=== PATIENT | male | born 1940 | race Caucasian/White ===

== ENCOUNTER 2023-04-17 06:21 | Inpatient (IN) ==
[2023-04-17] MEDS ORDERED: CEFEPIME 2,000 MG/20 ML VIAL IV STA (06:54)
[2023-04-17] MEDS ORDERED: ACETAMINOPHEN 1,000 MG/100 ML VIAL IV STA (06:54)
[2023-04-17] MEDS ORDERED: SODIUM CHLORIDE 0.9% 1000ML 1,000 ML IV ONE (06:54)
--- NOTE | 2023-04-17 06:58 | Emergency Department Note ---
Impression & Plan Illness, Thrombocytopenia, Fever of unknown origin, Generalized weakness ED Provider Note Name: FAYE VAZQUEZ Age: 83 Sex: M Arrives Via: Ambulance Informant: Patient (poor historian), ED Provider: Cedrick Umaña MD Chief Complaint: Weakness Impression: As per impression above Medical Decision Makin-year-old gentleman from out of town who has a history of hypotension, vertigo, dementia arrives for evaluation of worsening weakness and confusion over the last 12 to 24 hours. He has been complaining of neck and upper back pain since moving a refrigerator a few days ago. On examination he does not appear to have meningitis he is moving his head around without significant discomfort has no nuchal rigidity. He does not have a fever either though he does feel quite warm. He is mildly confused and dehydrated appearing. He was given IV fluids with vast improvement. His initial blood pressure lactic acid are unremarkable as well. I am testing is positive for IgG but not IgM thus would suspect chronic infections as opposed to acute Lyme as the cause of his symptoms today. notes that he has been losing bladder control this UA obtained which is unremarkable as well. White blood cell count his procalcitonin's lactate are all unremarkable. There is no clear etiology of the fever. He does appear to have been significantly improved though with IV fluids and antibiotics. Given all of this clearly will need to come and hospitalist was consulted for further management. At this point given he has no true nuchal rigidity no fever no white count would hold off on LP at this time and defer neuroimaging to hospital service for further management. Given his history and the confusion blood cultures had been obtained he was given empiric cefepime for infectious etiology. Patient has a mild thrombocytopenia. He and state that he has had this for a long time. Triage/Nursing Notes reviewed by Me Differentials:Viral syndrome, otitis, pharyngitis, pneumonia, influenza, meningitis, urinary tract infection, sepsis, bacteremia, as well as other pathologies. Vital Signs: reviewed and remarkable for no significant abnormalities Interventions: Normal saline bolus IV, cefepime IV Labs:Reviewed and remarkable for no significant abnormalities Imaging:Reviewed chest x-ray as per my interpretation no infiltrate nor effusion appreciated. EKG:As per my interpretation. Indication weakness. Normal sinus rhythm at 95 bpm no ectopy no ischemia. Cardiac/Tele Monitoring: Cardiac Monitoring: An Order was placed for continuous cardiac monitoring. The monitor shows a rate of 90 with a normal sinus rhythm. Consults:Dr Cain Romero Hospitalist Plan: Disposition:Hospitalization Condition: Fair History of Present Illness:83-year-old male arrives for evaluation illness. Patient had been moving a refrigerator several days ago and started noticing he had wrenched his neck and upper back. Otherwise no issues until yesterday. He developed fevers, chills, weakness, fatigue, loss of bladder control, confusion, cough and generalized malaise. Patient without appetite over the last 12 to 24 hours. He has developed a moderate cough. No productive cough. Denies any falls or syncope. Denies any headache, sore throat, chest pain, difficulty breathing, back pain, abdominal pain, urinary burning, diarrhea, leg swelling, rashes. Patient without history of this previously. No known sick contacts Past History:Hypotension, Vertigo, Dementia (mild) Home Medications:midodrine, meclizine, aricept Allergies:No known drug allergy Vitals:Blood Pressure: 131/91, Pulse 93, RR 19, T 37.1C, O2 98% on 4L NC Physical Exam: GENERAL: Patient is unwell appearing and in mild distress. Patient is significantly warm to touch and feels febrile. He has some mild rigors. He is moderately somnolent EYES: No scleral icterus, unremarkable pupils. ENT: Mucous membranes dry, no nasal congestion. NECK: No masses appreciated, nomeningismus, trachea is midline. RESPIRATORY: Moderately tachypneic with crackles at bilateral bases CARDIOVASCULAR: Regular rate and rhythm.No murmurs, rubs, gallops appreciated. GASTROINTESTINAL: Abdomen soft, non-tender, no peritonitis. EXTREMITIES: Normal motion all extremities, no cyanosis, no edema. NEUROLOGIC: Patient is somnolent but is alert enough to answer questions and is oriented. No focal neurologic deficit appreciated SKIN: No rash, no jaundice, no diaphoresis. PSYCH: Appropriate GCS: 15 ED Course: Times/Reassessments: Patient does appear much better after some IV fluids. He is awake he is still somewhat tremulous but he is answering questions. Cedrick Umaña MD Past Med/Surg History Medical History (Updated 04/17/23 @ 13:24 by Cedrick Umaña MD) Dementia Vertigo Surgical History (Updated 04/17/23 @ 08:39 by Kia Barlow DO) S/P rotator cuff repair right Social History (Updated 04/17/23 @ 08:40 by Kia Barlow DO) Smoking Status: Never smoker Hx Alcohol Use: No Hx Substance Use: No Current Living Situation: Spouse Feels Safe at Home: Yes Assistive Devices: None Allergies Allergies Allergy/AdvReac Type Severity Reaction Status Date / Time No Known Allergies Allergy Unverified 04/17/23 08:31 Home Meds Home Medications Medication Instructions Recorded Confirmed Zn-pyg yibi-[id number]-lyc palmet 1 cap PO DAILY 04/17/23 04/17/23 capsule donepezil 5 mg tablet 5 mg PO QAM 04/17/23 04/17/23 latanoprost 0.005 % eye drops 1 drp OPB HS 04/17/23 04/17/23 meclizine 12.5 mg tablet 12.5 mg PO DAILY 04/17/23 04/17/23 midodrine 5 mg tablet 5 mg PO BID@0700,1300 04/17/23 04/17/23 Results & Data (ED) Vital Signs Vital Signs - 24 hr 04/17/23 06:25 04/17/23 06:25 04/17/23 06:32 Temperature 37.1 C Temperature Source Oral Pulse Rate 97 H 93 H Pulse Rate from SpO2 Sensor Respiratory Rate 19 Respiratory Effort / Characteristics Non-Labored Respiratory Depth Normal Blood Pressure 131/91 Blood Pressure Mean 104 Pulse Oximetry 98 Oxygen Delivery Method Nasal Cannula Oxygen Flow Rate 4 Sepsis Recent Fever Within 48 Hours Yes Sepsis New/Unexplained Change in Mental Status No Sepsis Action Taken by Nursing No Action Required 04/17/23 07:00 04/17/23 07:30 04/17/23 08:30 Temperature Temperature Source Pulse Rate 90 90 97 H Pulse Rate from SpO2 Sensor 91 H 88 97 H Respiratory Rate 19 16 28 H Respiratory Effort / Characteristics Respiratory Depth Blood Pressure 119/76 137/73 121/84 Blood Pressure Mean 90 94 96 Pulse Oximetry 95 98 90 Oxygen Delivery Method Room Air Oxygen Flow Rate Sepsis Recent Fever Within 48 Hours Sepsis New/Unexplained Change in Mental Status Sepsis Action Taken by Nursing 04/17/23 09:00 Temperature Temperature Source Pulse Rate 89 Pulse Rate from SpO2 Sensor 82 Respiratory Rate 23 Respiratory Effort / Characteristics Respiratory Depth Blood Pressure 126/67 Blood Pressure Mean 86 Pulse Oximetry 95 Oxygen Delivery Method Oxygen Flow Rate Sepsis Recent Fever Within 48 Hours Sepsis New/Unexplained Change in Mental Status Sepsis Action Taken by Nursing Laboratory Data 04/17/23 06:29 04/17/23 06:29 Lab Results 04/17/23 04/17/23 04/17/23 Range/Units 06:29 06:29 06:29 WBC 5.37 (4.8-10.8) K/ul RBC 4.11 L (4.70-6.10) M/uL Hgb 13.0 L (14.0-18.0) g/dl Hct 38.2 L (42.0-52.0) % MCV 92.9 (80.0-100.0) fL MCH 31.6 (25.0-34.0) pg MCHC 34.0 (32.0-36.0) g/dL RDW Std Deviation 40.9 (36.4-46.3) fL RDW Coeff of Nasrin 12.1 (11.5-14.5) % Plt Count 99 L (130-400) K/uL MPV 10.5 (9.4-12.4) fL Immature Gran % (Auto) 0.2 % Neut % (Auto) 81.7 % Lymph % (Auto) 7.1 % [place] % (Auto) 8.4 % Eos % (Auto) 2.2 % Baso % (Auto) 0.4 % Neut # (Auto) 4.39 (1.40-6.50) K/uL Lymph # (Auto) 0.38 L (1.2-3.4) K/uL [place] # (Auto) 0.45 (0.11-0.59) K/uL Eos # (Auto) 0.12 (0-0.50) K/uL Baso # (Auto) 0.02 (0-0.2) K/uL Immature Gran # (Auto) 0.01 (0.01-0.20) K/uL Platelet Estimate Decreased L (Normal) Sodium 138 (136-145) mmol/L Potassium 3.9 (3.5-5.1) mmol/L Chloride 110 H (98-107) mmol/L Carbon Dioxide 23 (21-32) mmol/L Anion Gap 5 (3-11) BUN 17 (6-23) mg/dl Creatinine 1.17 (0.6-1.4) mg/dl Est Cr Clr Drug Dosing 59.0 ml/min Est GFR ( Amer) 65.5 ml/min Est GFR (Non-Af Amer) 56.5 ml/min BUN/Creatinine Ratio 14.5 (10-20) Glucose 128 H (70-99(Fasting)) mg/dl Lactate (0.4-2.0) mmol/L Calcium 8.3 L (8.6-10.3) mg/dl Total Bilirubin 0.9 (0.2-1.0) mg/dl AST 17 (13-39) U/L ALT 11 (7-52) U/L Alkaline Phosphatase 91 (34-104) U/L Total Creatine Kinase 74 (30-223) U/L C-Reactive Protein 2.94 H (0-0.5) mg/dl Total Protein 6.1 (6.0-8.3) gm/dl Albumin 3.5 (3.4-5.0) gm/dl Globulin 2.6 (2.5-4.0) gm/dl Albumin/Globulin Ratio 1.3 (0.9-2) Procalcitonin (0-0.5) ng/ml TSH (0.300-4.500) uIu/ml Urine Color Urine Appearance (Clear) Urine pH (4.5-7.5) Ur Specific [place] (1.000-1.030) Urine Protein (Negative) Urine Glucose (UA) (Negative) Urine Ketones (Negative) Urine Blood (Negative) Urine Nitrite (Negative) Urine Bilirubin (Negative) Urine Urobilinogen (Negative) Ur Leukocyte Esterase (Negative) Nasal Screen MRSA (PCR) (Negative) Adenovirus (PCR) (NotDetected) Anaplasma Smear See Comment Babesia Smear See Comment B. pertussis DNA (PCR) (NotDetected) B.parapertussis DNA PCR (NotDetected) Lyme Disease IgG Ab (Negative) Lyme Disease IgM Ab (Negative) C. pneumoniae DNA (PCR) (NotDetected) Coronavirus OC43 (PCR) (NotDetected) Coronavirus HKU1 (PCR) (NotDetected) Coronavirus 229E (PCR) (NotDetected) SARS-CoV-2 (PCR) (NotDetected) Coronavirus NL63 (PCR) (NotDetected) Human Metapneumovir PCR (NotDetected) Influenza Type A (PCR) (NotDetected) Influenza Type B (PCR) (NotDetected) M. pneumoniae (PCR) (NotDetected) Parainfluenza 1 (PCR) (NotDetected) Parainfluenza 2 (PCR) (NotDetected) Parainfluenza 3 (PCR) (NotDetected) Parainfluenza 4 (PCR) (NotDetected) RSV (PCR) (NotDetected) Entero/Rhino (PCR) (NotDetected) 04/17/23 04/17/23 04/17/23 Range/Units 06:29 06:32 07:10 WBC (4.8-10.8) K/ul RBC (4.70-6.10) M/uL Hgb (14.0-18.0) g/dl Hct (42.0-52.0) % MCV (80.0-100.0) fL MCH (25.0-34.0) pg MCHC (32.0-36.0) g/dL RDW Std Deviation (36.4-46.3) fL RDW Coeff of Nasrin (11.5-14.5) % Plt Count (130-400) K/uL MPV (9.4-12.4) fL Immature Gran % (Auto) % Neut % (Auto) % Lymph % (Auto) % [place] % (Auto) % Eos % (Auto) % Baso % (Auto) % Neut # (Auto) (1.40-6.50) K/uL Lymph # (Auto) (1.2-3.4) K/uL [place] # (Auto) (0.11-0.59) K/uL Eos # (Auto) (0-0.50) K/uL Baso # (Auto) (0-0.2) K/uL Immature Gran # (Auto) (0.01-0.20) K/uL Platelet Estimate (Normal) Sodium (136-145) mmol/L Potassium (3.5-5.1) mmol/L Chloride (98-107) mmol/L Carbon Dioxide (21-32) mmol/L Anion Gap (3-11) BUN (6-23) mg/dl Creatinine (0.6-1.4) mg/dl Est Cr Clr Drug Dosing ml/min Est GFR ( Amer) ml/min Est GFR (Non-Af Amer) ml/min BUN/Creatinine Ratio (10-20) Glucose (70-99(Fasting)) mg/dl Lactate 1.3 (0.4-2.0) mmol/L Calcium (8.6-10.3) mg/dl Total Bilirubin (0.2-1.0) mg/dl AST (13-39) U/L ALT (7-52) U/L Alkaline Phosphatase (34-104) U/L Total Creatine Kinase (30-223) U/L C-Reactive Protein (0-0.5) mg/dl Total Protein (6.0-8.3) gm/dl Albumin (3.4-5.0) gm/dl Globulin (2.5-4.0) gm/dl Albumin/Globulin Ratio (0.9-2) Procalcitonin 0.16 (0-0.5) ng/ml TSH 0.675 (0.300-4.500) uIu/ml Urine Color Urine Appearance (Clear) Urine pH (4.5-7.5) Ur Specific [place] (1.000-1.030) Urine Protein (Negative) Urine Glucose (UA) (Negative) Urine Ketones (Negative) Urine Blood (Negative) Urine Nitrite (Negative) Urine Bilirubin (Negative) Urine Urobilinogen (Negative) Ur Leukocyte Esterase (Negative) Nasal Screen MRSA (PCR) (Negative) Adenovirus (PCR) (NotDetected) Anaplasma Smear Babesia Smear B. pertussis DNA (PCR) (NotDetected) B.parapertussis DNA PCR (NotDetected) Lyme Disease IgG Ab Positive A (Negative) Lyme Disease IgM Ab Negative (Negative) C. pneumoniae DNA (PCR) (NotDetected) Coronavirus OC43 (PCR) (NotDetected) Coronavirus HKU1 (PCR) (NotDetected) Coronavirus 229E (PCR) (NotDetected) SARS-CoV-2 (PCR) (NotDetected) Coronavirus NL63 (PCR) (NotDetected) Human Metapneumovir PCR (NotDetected) Influenza Type A (PCR) (NotDetected) Influenza Type B (PCR) (NotDetected) M. pneumoniae (PCR) (NotDetected) Parainfluenza 1 (PCR) (NotDetected) Parainfluenza 2 (PCR) (NotDetected) Parainfluenza 3 (PCR) (NotDetected) Parainfluenza 4 (PCR) (NotDetected) RSV (PCR) (NotDetected) Entero/Rhino (PCR) (NotDetected) 04/17/23 04/17/23 04/17/23 Range/Units 07:25 07:26 07:34 WBC (4.8-10.8) K/ul RBC (4.70-6.10) M/uL Hgb (14.0-18.0) g/dl Hct (42.0-52.0) % MCV (80.0-100.0) fL MCH (25.0-34.0) pg MCHC (32.0-36.0) g/dL RDW Std Deviation (36.4-46.3) fL RDW Coeff of Nasrin (11.5-14.5) % Plt Count (130-400) K/uL MPV (9.4-12.4) fL Immature Gran % (Auto) % Neut % (Auto) % Lymph % (Auto) % [place] % (Auto) % Eos % (Auto) % Baso % (Auto) % Neut # (Auto) (1.40-6.50) K/uL Lymph # (Auto) (1.2-3.4) K/uL [place] # (Auto) (0.11-0.59) K/uL Eos # (Auto) (0-0.50) K/uL Baso # (Auto) (0-0.2) K/uL Immature Gran # (Auto) (0.01-0.20) K/uL Platelet Estimate (Normal) Sodium (136-145) mmol/L Potassium (3.5-5.1) mmol/L Chloride (98-107) mmol/L Carbon Dioxide (21-32) mmol/L Anion Gap (3-11) BUN (6-23) mg/dl Creatinine (0.6-1.4) mg/dl Est Cr Clr Drug Dosing ml/min Est GFR ( Amer) ml/min Est GFR (Non-Af Amer) ml/min BUN/Creatinine Ratio (10-20) Glucose (70-99(Fasting)) mg/dl Lactate (0.4-2.0) mmol/L Calcium (8.6-10.3) mg/dl Total Bilirubin (0.2-1.0) mg/dl AST (13-39) U/L ALT (7-52) U/L Alkaline Phosphatase (34-104) U/L Total Creatine Kinase (30-223) U/L C-Reactive Protein (0-0.5) mg/dl Total Protein (6.0-8.3) gm/dl Albumin (3.4-5.0) gm/dl Globulin (2.5-4.0) gm/dl Albumin/Globulin Ratio (0.9-2) Procalcitonin (0-0.5) ng/ml TSH (0.300-4.500) uIu/ml Urine Color Yellow Urine Appearance Clear (Clear) Urine pH 7.0 (4.5-7.5) Ur Specific [place] 1.022 (1.000-1.030) Urine Protein Negative (Negative) Urine Glucose (UA) Negative (Negative) Urine Ketones Trace H (Negative) Urine Blood Negative (Negative) Urine Nitrite Negative (Negative) Urine Bilirubin Negative (Negative) Urine Urobilinogen Negative (Negative) Ur Leukocyte Esterase Negative (Negative) Nasal Screen MRSA (PCR) Negative (Negative) Adenovirus (PCR) Not Detected (NotDetected) Anaplasma Smear Babesia Smear B. pertussis DNA (PCR) Not Detected (NotDetected) B.parapertussis DNA PCR Not Detected (NotDetected) Lyme Disease IgG Ab (Negative) Lyme Disease IgM Ab (Negative) C. pneumoniae DNA (PCR) Not Detected (NotDetected) Coronavirus OC43 (PCR) Not Detected (NotDetected) Coronavirus HKU1 (PCR) Not Detected (NotDetected) Coronavirus 229E (PCR) Not Detected (NotDetected) SARS-CoV-2 (PCR) Not Detected (NotDetected) Coronavirus NL63 (PCR) Not Detected (NotDetected) Human Metapneumovir PCR Not Detected (NotDetected) Influenza Type A (PCR) Not Detected (NotDetected) Influenza Type B (PCR) Not Detected (NotDetected) M. pneumoniae (PCR) Not Detected (NotDetected) Parainfluenza 1 (PCR) Not Detected (NotDetected) Parainfluenza 2 (PCR) Not Detected (NotDetected) Parainfluenza 3 (PCR) Not Detected (NotDetected) Parainfluenza 4 (PCR) Not Detected (NotDetected) RSV (PCR) Not Detected (NotDetected) Entero/Rhino (PCR) Not Detected (NotDetected) Administered Medications Donepezil HCl (Donepezil Hcl 5 Mg Tab) 5 mg PO QAM MARIA ESTHER Stop: 05/17/23 12:10 Last Admin: 04/17/23 12:36 Dose: 5 mg Documented By: MTDeja Sodium Chloride (Nss 1000ml) 1,000 mls @ 125 mls/hr IV .Q8H MARIA ESTHER Stop: 04/18/23 04:10 Last Admin: 04/17/23 12:36 Dose: 125 mls/hr Documented By: MTDeja Discontinued Medications Sodium Chloride (Nss 1000ml) 1,000 mls @ 999 mls/hr IV .Q1H1M ONE Stop: 04/17/23 07:54 Last Infusion: 04/17/23 09:01 Dose: 0 mls/hr Documented By: LULA(2) Admin: 04/17/23 07:27 Dose: 999 mls/hr Documented By: MTDeja(2) Acetaminophen (Ofirmev) 1,000 mg in 100 mls @ 400 mls/hr IV NOW STA Stop: 04/17/23 07:08 Last Infusion: 04/17/23 09:00 Dose: 0 mls/hr Documented By: MTDeja(2) Admin: 04/17/23 07:27 Dose: 400 mls/hr Documented By: LULA(2) Cefepime HCl (Maxipime) 2,000 mg in 20 mls @ 5 mls/min IV NOW STA; Protocol Stop: 04/17/23 06:57 Last Admin: 04/17/23 07:27 Dose: 5 mls/min Documented By: LULA(2) Imaging Data Radiologist's Impression: Chest X-Ray 04/17/23 06:29 XR chest 1V portable CLINICAL HISTORY: Fever TECHNIQUE: Single frontal radiograph of the chest was obtained. Comparison: None available at the time of this dictation. FINDINGS: No lines and tubes are seen. The cardiomediastinal silhouette is normal. Reticular interstitial opacities are seen. No evidence of pleural effusion or pneumothorax. IMPRESSION: Interstitial thickening may represent chronic interstitial disease or vascular congestion. No evidence of pneumonia. ACT 112: Negative or not required by law. Electronically signed by: Wilton Huitron M.D. 04/17/2023 10:45 AM Discharge Plan Visit Data Chief Complaint: Fever Stated Complaint: BACK INJURY/PAIN, ALTERED, FEVER ED Provider: Cedrick Umaña Discharge Problem: Illness, Thrombocytopenia, Fever of unknown origin, Generalized weakness Patient Disposition: Admitted As Inpatient Discharge Instructions Interventions: ED Discharge Assessment Last Done: 04/17/23 12:25
[2023-04-17 07:12] LABS: Albumin Globulin Ratio 1.3 (0.9-2); Albumin Level 3.5 gm/dl (3.4-5.0); BUN Creatinine Ratio 14.5 (10-20); Bilirubin,Total 0.9 mg/dl (0.2-1.0); Calcium 8.3 mg/dl (8.6-10.3); Est GFR (African American) 65.5 ml/min; Est GFR (Non-African American) 56.5 ml/min; Globulin 2.6 gm/dl (2.5-4.0); Potassium 3.9 mmol/L (3.5-5.1); Total Protein 6.1 gm/dl (6.0-8.3)
[2023-04-17 07:18] LABS: Basophils # (auto) 0.02 K/uL (0-0.2); Basophils % (auto) 0.4 %; Eosinophils # (auto) 0.12 K/uL (0-0.50); Eosinophils % (auto) 2.2 %; Immature Granulocytes # (auto) 0.01 K/uL (0.01-0.20); Immature Granulocytes % (auto) 0.2 %; Lymphocytes # (auto) 0.38 K/uL (1.2-3.4); Lymphocytes % (auto) 7.1 %; Monocytes # (auto) 0.45 K/uL (0.11-0.59); Monocytes % (auto) 8.4 %; Neutrophils # (auto) 4.39 K/uL (1.40-6.50); Neutrophils % (auto) 81.7 %; Platelet Estimate Decreased (Normal)
[2023-04-17 07:19] LABS: Hematocrit (blood only) 38.2 % (42.0-52.0); Mean Corpuscular Hemoglobin 31.6 pg (25.0-34.0); Mean Corpuscular Volume 92.9 fL (80.0-100.0); Mean Platelet Volume 10.5 fL (9.4-12.4); Platelet Count 99 K/uL (130-400); RDW Coefficient of Variation 12.1 % (11.5-14.5); RDW Standard Deviation 40.9 fL (36.4-46.3); Red Blood Count 4.11 M/uL (4.70-6.10); White Blood Count 5.37 K/ul (4.8-10.8)
[2023-04-17 07:54] LABS: Procalcitonin 0.16 ng/ml (0-0.5)
[2023-04-17 08:00] LABS: Lyme Ab IgG w/WB Rflx Positive (Negative); Lyme Ab IgM w/WB Rflx Negative (Negative)
[2023-04-17 08:08] LABS: Appearance Urine Clear (Clear); Bilirubin Urine Negative (Negative); Blood Urine Negative (Negative); Color Urine Yellow; Glucose Urine UA Negative (Negative); Ketones Urine Trace (Negative); Leukocyte Esterase Urine Negative (Negative); Nitrite Urine Negative (Negative); Protein Urine Negative (Negative); Specific Gravity Urine 1.022 (1.000-1.030); Urobilinogen Urine Negative (Negative)
--- NOTE | 2023-04-17 08:26 | History & Physical Report ---
Date of Service April 17, 2023 Assessment & Plan (1) Fever: Plan: doesn't meet SIRS criteria but does clinically appear to be an early developing sepsis. Unclear etiology-urine clear, CXR clear on wet read, meningitis considered but thought less likely, Lyme negative and thrombocytopenic but no other LFT abnormalities and no h/o known tick exposure that would suggest rickettsial illness, currently mentating at baseline, no abdominal pain on exam, no other skin findings, no heart murmur, no evidence of GI illness. Blood cultures and final CXR reading pending. Respiratory biofire panel negative. For now, agree with broad spectrum abx coverage with cefepime pending culture results and clinical improvement. Monitor on telemetry. PT/OT for weakness. Cont IVF for another 2 bags until feeling better. (2) Weakness: Plan: plan as above. Cont supportive care. (3) Urinary incontinence: Plan: Uncertain cause, no evidence of infection. Patient has been taking meclizine daily since January and was counseled not to do this because of known anticholinergic side effects such as dry mouth and urinary retention that can de velop. He reports having these issues now with loss of control of bladder just last night when he would change position sitting to standing. He apparently has significant vertigo at baseline. Will cont to watch this closely off the meclizine. Hold saw palmetto supplement. Bladder scans every 6 hours. (4) Thrombocytopenia: Plan: No prior records available to eval baseline. Possibly related to acute infection given infectious symptoms. INR, fibrinogen to ensure no DIC picture. Hold DVT chemoprophylaxis at this time and trend CBC in am. (5) Ambulatory dysfunction: Plan: frequent falls, however, none since January per who is at bedside and assists with the history today. Will also hold midodrine and add back if hypotensive. Check orthostatics qshift (6) Dementia: Plan: chronic, mentating at his baseline. takes donepezil which will be continued (7) Vertigo: Plan: Hold daily meclizine as noted above. SCDs/ambulation Full Code Dispo-to telemetry overnight. Home possibly tomorrow pending clinical improvement, therapy eval and recommendations, and culture results. I spent a total [id number] coordinating, documenting, and providing care for this patient excluding time spent in the performance of separately billed services DO Nick Powell Hospitalist History of Present Illness Chief Complaint: fever Primary Care Provider: EMILY PCP 83 yo M with dementia traveled here this weekend from [place] to visit a friend reports helped friend moving heavy refrigerator reports losing control of urine when changes position, chronically has retention issues, takes saw palmetto supplement which "isn't working" became weaker in the last 24-48 hours with fever since yesterday ate well yesterday in middle of night, he had to go to the bathroom and per he was very confused thought there was a faucet on the wall where he could get a drink of water he was too weak and couldn't get dressed, couldn't stand up or take directions. dry coughing reported about 3-4 days ago "dull thumper of a headache" Neck stiffness and back pain related to moving friends' refrigerator. weakness and more frequent falls at home in recent months per but no fall since January midodrine was started a couple of months ago and he has been taking twice daily persistent dizziness so takes meclizine every day since January Also takes donepezil ambulates independently and he is mentating at his baseline. mosquito bites recently per some back stiffness related to moving the appliance. Denies chest pain, SOB, abdominal pain. On arrival to the ER he was confused and lethargic with HR 97. Temp didn't register as febrile, but he appeared hot and ill with generalized weakness. Given NSS and cefepime and perked up with IVf per ER provider. Meningitis considered, however, patient and feel this is less likely and decline LP at this time. Lyme panel-no acute disease Anaplasma and babesia pending. No lab abnormalities, rashes or known h/o tick that would suggest tick borne illness in the history. CXR without formal reading but doesn't appear to have a chyna pneumonia Blood cultures are pending. Allergies Allergy/AdvReac Type Severity Reaction Status Date / Time No Known Allergies Allergy Unverified 04/17/23 08:31 Home Medications Medication Instructions Recorded Confirmed Type Zn-pyg troy-leljjd-yey palmet 1 cap PO DAILY 04/17/23 04/17/23 History capsule donepezil 5 mg tablet 5 mg PO QAM 04/17/23 04/17/23 History latanoprost 0.005 % eye drops 1 drp OPB HS 04/17/23 04/17/23 History meclizine 12.5 mg tablet 12.5 mg PO DAILY 04/17/23 04/17/23 History midodrine 5 mg tablet 5 mg PO BID@0700,1300 04/17/23 04/17/23 History Past Med/Surg History Medical History (Updated 04/17/23 @ 09:31 by Kia Barlow DO) Dementia Vertigo Surgical History (Updated 04/17/23 @ 08:39 by Kia Barlow DO) S/P rotator cuff repair right Social History (Updated 04/17/23 @ 08:40 by Kia Barlow DO) Smoking Status: Never smoker Hx Alcohol Use: No Hx Substance Use: No Current Living Situation: Spouse Feels Safe at Home: Yes Review of Systems Review of Systems: All systems were reviewed and negative except as indicated on HPI above. Physical Exam Physical Exam: CONSTITUTIONAL: WNWD, vitals as above, generally ill-appearing, NAD EYES: normal conjunctivae, no scleral icterus ENT: external ear and nose normal NECK: trachea midline RESPIRATORY: clear to auscultation bilaterally, no crackles, rales or wheezes, normal respiratory effort CARDIOVASCULAR: regular rate and rhythm, S1 and 2 heard without murmurs, gallops or rubs, no JVD, no peripheral edema CHEST: inspection of chest was normal GASTROINTESTINAL: soft, nontender, ND, no guarding MUSCULOSKELETAL: strength 5/5 throughout, head is normocephalic and atraumatic SKIN: warmer than normal and dry, no rashes NEUROLOGIC: patellar DTRs 2+ bilat. pupils are round and equal bilaterally, no facial palsy, no dysarthria. CN 2-12 grossly intact, no sensory deficit, normal cognition, normal speech, no tremor PSYCHIATRIC: alert cooperative and oriented to person, place but not to time which is his baseline. Euthymic mood, answering questions correctly, no clinical signs of delirium. Results & Data Results & Data Vital Signs (Past 12 Hours) Vital Signs Temp Pulse Resp BP Pulse Ox O2 Del Method O2 Flow Rate 04/17/23 07:30 90 16 137/73 98 Room Air 04/17/23 07:00 90 19 119/76 95 04/17/23 06:32 93 H 04/17/23 06:25 37.1 C 97 H 19 131/91 98 Nasal Cannula 4 Laboratory Results Short CBC 04/17/23 Range/Units 06:29 WBC 5.37 (4.8-10.8) K/ul Hgb 13.0 L (14.0-18.0) g/dl Hct 38.2 L (42.0-52.0) % Plt Count 99 L (130-400) K/uL BMP 04/17/23 06:29 Sodium 138 Potassium 3.9 Chloride 110 H Carbon Dioxide 23 BUN 17 Creatinine 1.17 Glucose 128 H Calcium 8.3 L Cardiac Enzymes 04/17/23 Range/Units 06:29 Total Creatine Kinase 74 (30-223) U/L Liver Function 04/17/23 Range/Units 06:29 Total Bilirubin 0.9 (0.2-1.0) mg/dl AST 17 (13-39) U/L ALT 11 (7-52) U/L Alkaline Phosphatase 91 (34-104) U/L Albumin 3.5 (3.4-5.0) gm/dl Urine 04/17/23 Range/Units 07:34 Urine Color Yellow Urine Appearance Clear (Clear) Urine pH 7.0 (4.5-7.5) Ur Specific [place] 1.022 (1.000-1.030) Urine Protein Negative (Negative) Urine Glucose (UA) Negative (Negative)
[2023-04-17 09:00] LABS: Adenovirus PCR Not Detected (NotDetected); Bordetella parapertussis PCR Not Detected (NotDetected); Bordetella pertussis PCR Not Detected (NotDetected); Chlamydia pneumoniae PCR Not Detected (NotDetected); Coronavirus 229E PCR Not Detected (NotDetected); Coronavirus CoV-2 (COVID19)PCR Not Detected (NotDetected); Coronavirus HKU1 PCR Not Detected (NotDetected); Coronavirus NL63 PCR Not Detected (NotDetected); Coronavirus OC43PCR Not Detected (NotDetected); Human Metapneumovirus PCR Not Detected (NotDetected); Influenza A PCR Not Detected (NotDetected); Influenza B PCR Not Detected (NotDetected); Mycoplasma pneumoniae PCR Not Detected (NotDetected); Parainfluenza Virus 1 PCR Not Detected (NotDetected); Parainfluenza Virus 2 PCR Not Detected (NotDetected); Parainfluenza Virus 3 PCR Not Detected (NotDetected); Parainfluenza Virus 4 PCR Not Detected (NotDetected); Respiratory Syncytial VirusPCR Not Detected (NotDetected); Rhinovirus/Enterovirus PCR Not Detected (NotDetected)
--- NOTE | 2023-04-17 09:32 | CT Scan Report ---
CT cervical spine wo con CLINICAL HISTORY: neck pain TECHNIQUE: Multidetector row helical CT of the cervical spine was performed without administration of intravenous contrast. Coronal and sagittal reformations were obtained. Automated dose lowering techn iques and/or adjustment according to patient size were utilized for this exam. Comparison: None available at the time of this dictation. FINDINGS: No acute fractures or subluxations are identified. Degenerative changes are seen in the visualized sp ine. The alignment is normal. Biapical scarring and prominent mediastinal lymph nodes are noted. IMPRESSION: 1. Degenerative changes without evidence of acute bony injury. 2. Enlarged mediastinal lymph nodes are seen of uncertain etiology. Clinical correlation is recommen ded and CT chest can be performed if there is clinical concern. ACT 112: Positive. There are findings on this exam that require communication between the performing entity and the patient following Patient Test Result Information Act ([place] Act 112) guidelines. Electronically signed by: Wilton Huitron M.D. 04/17/2023 9:30 AM
--- NOTE | 2023-04-17 09:33 | CT Scan Report ---
CT head/brain wo con CLINICAL HISTORY: confusion, headache, dysarthria Technique: Contiguous axial CT images of the head were acquired from the base of the skull to the milton priscilla without intravenous contrast administration. Images were viewed in brain, subdural and bone windo ws. Automated dose lowering techniques and/or adjustment according to patient size were utilized for this exam. Comparison: None available at the time of this dictation. Findings: The ventricles, basal cisterns, and cerebral sulci are normal. There is no acute intracranial hemorrh age or evidence of acute territorial infarction. Neither mass effect, shift of the midline structures , nor abnormal extra-axial fluid collections are shown. Imaged portions of the paranasal sinuses and mastoid air cells are clear. The orbits appear normal. There are no acute fractures of the calvaria or scalp swelling. Impression: No acute intracranial hemorrhage, no evidence of acute territorial infarction or other acute intracra nial disease process. ACT 112: Negative or not required by law. Electronically signed by: Wilton Huitron M.D. 04/17/2023 9:32 AM
--- NOTE | 2023-04-17 10:46 | XRay Report ---
XR chest 1V portable CLINICAL HISTORY: Fever TECHNIQUE: Single frontal radiograph of the chest was obtained. Comparison: None available at the time of this dictation. FINDINGS: No lines and tubes are seen. The cardiomediastinal silhouette is normal. Reticular interstitial opaci ties are seen. No evidence of pleural effusion or pneumothorax. IMPRESSION: Interstitial thickening may represent chronic interstitial disease or vascular congestion. No evidenc e of pneumonia. ACT 112: Negative or not required by law. Electronically signed by: Wilton Huitron M.D. 04/17/2023 10:45 AM
[2023-04-17 11:07] LABS: Fibrinogen 244 mg/dl (184-400); INR 1.1 (0.9-1.1); Prothrombin Time 12.3 Seconds (9.0-12.0)
--- NOTE | 2023-04-17 11:49 | Electrocardiogram Report ---
Test Reason : Blood Pressure : / mmHG Vent. Rate : 095 BPM Atrial Rate : 095 BPM P-R Int : 190 ms QRS Dur : 098 ms QT Int : 336 ms P-R-T Axes : 020 -08 054 degrees QTc Int : 422 ms Normal sinus rhythm Normal ECG No previous ECGs available Confirmed by Eddie Zaragoza ([id number]) on 04/17/2023 11:48:59 AM Referred By: NO PCP Confirmed By:Eddie Zaragoza
[2023-04-17] MEDS ORDERED: POLYETHYLENE (MIRALAX) 17 GM PACK PO PRN (12:11)
[2023-04-17] MEDS: DONEPEZIL HCL 5 MG TAB PO SCH (12:36)
[2023-04-17] MEDS: SODIUM CHLORIDE 0.9% 1000ML 1,000 ML IV SCH ×2 (12:36→20:36)
[2023-04-17 13:03] LABS: C Reactive Protein 2.94 mg/dl (0-0.5)
[2023-04-17] MEDS: ACETAMINOPHEN 325 MG TAB PO PRN ×2 (15:05→22:12)
[2023-04-17] MEDS ORDERED: VANCOMYCIN CONSULT ACTIVE PRN (16:24)
[2023-04-17] MEDS ORDERED: AMPICILLIN SOD 1 GM VIAL IV SCH (16:30)
[2023-04-17] MEDS ORDERED: VANCOMYCIN HCL 1,750 MG in SODIUM CHLORIDE 0.9% 500 ML IV ONE (16:45)
[2023-04-17] MEDS ORDERED: OPTIRAY 320 100ml IV ONE (17:02)
[2023-04-17] MEDS ORDERED: CEFEPIME 1,000 MG in SYRINGE 0 ML IV SCH (18:00)
[2023-04-17] MEDS: AMPICILLIN 2,000 MG in SODIUM CHLOR 0.9% AD-VAN 100 ML IV SCH ×2 (18:31→21:33)
[2023-04-17] MEDS: CEFEPIME 2,000 MG in SYRINGE 0 ML IV SCH (19:35)
--- NOTE | 2023-04-17 21:47 | CT Scan Report ---
CT abd pelvis IV con only CLINICAL HISTORY: urinary issues, eval LAD, fever unk etiology TECHNIQUE: Helical axial images of the abdomen and pelvis were obtained and displayed. Automated dose lowering techniques and/or adjustment according to patient size were utilized for this exam. This e xam was performed with intravenous contrast. COMPARISON: None available at the time of this dictation. FINDINGS: Lower chest: Bibasilar atelectasis versus scarring is seen. Liver: Unremarkable. No focal lesions are seen. Gallbladder and biliary tree: No calcified gallstones. Normal caliber wall. No intra- or extrahepatic biliary ductal dilation. Pancreas: Unremarkable, no focal lesions. Spleen: Unremarkable. Adrenals: Unremarkable. Kidneys and ureters: Multiple renal cysts are seen. Bladder: Diffuse homogeneous wall thickening is seen. Reproductive organs: Prostatomegaly is seen. Bowel: A hiatal hernia is seen. A few diverticula are seen in the distal colon. Lymph nodes Retroperitoneal: Unremarkable. Pelvic: Unremarkable. Mesenteric: Unremarkable. Peritoneum: Normal. Vessels: Unremarkable. Abdominal wall: A fat-containing umbilical hernia is seen. Bones: Degenerative changes in the visualized spine. IMPRESSION: Diffuse thickening of the bladder wall is nonspecific and may reflect chronic outlet obstruction, how ever correlation with urinalysis is recommended to exclude UTI. ACT 112: Negative or not required by law. Electronically signed by: Wilton Huitron M.D. 04/17/2023 9:45 PM
[2023-04-17] MEDS: LATANOPROST 0.005% OP SOLN 2.5 ML BTL OPB SCH (21:48)
[2023-04-17] MEDS ORDERED: IPRATROPIUM BROMIDE NEB SOLN 0.02% 2.5 ML VIAL INH STA (22:09)
[2023-04-17] MEDS ORDERED: XOPENEX/ATROVENT 1.25mg/0.5MG NEB COMBO NEB STA (22:09)
[2023-04-17] MEDS ORDERED: LEVALBUTEROL 1.25 MG/3 ML NEB NEB STA (22:09)
[2023-04-17] MEDS ORDERED: FUROSEMIDE INJ 20 MG/2 ML VIAL IV ONE (22:10)
--- NOTE | 2023-04-17 22:17 | CT Scan Report ---
CT chest diagnostic wo con CLINICAL HISTORY: eval mediastinal LAD further TECHNIQUE: Multidetector row helical CT of the chest was performed. Coronal and sagittal reformations were obtained. Automated dose lowering techniques and/or adjustment according to patient size were u tilized for this exam. CT DOSE: 2162.87 mGy.cm Comparison: Comparison is made to chest radiograph 04/17/2023 FINDINGS: Lungs and pleura: Interstitial thickening is seen. Atelectasis versus scarring is seen in the lower l ungs. Heart and pericardium: Heart size is normal. No pericardial effusion. Vessels: Unremarkable. Mediastinum and kim: Numerous enlarged mediastinal lymph nodes are seen. Chest wall and lower neck: No axillary or lower cervical lymphadenopathy is seen. Abdomen: For findings below the diaphragm, please refer to CT of the abdomen dated the same. Bones: Unremarkable. IMPRESSION: Mediastinal lymphadenopathy is seen of uncertain etiology. Atelectasis versus scarring is seen withou t evidence of chyna pneumonia. ACT 112: Negative or not required by law. Electronically signed by: Wilton Huitron M.D. 04/17/2023 10:15 PM
[2023-04-18] MEDS: AMPICILLIN 2,000 MG in SODIUM CHLOR 0.9% AD-VAN 100 ML IV SCH ×6 (00:03→20:11)
[2023-04-18] MEDS ORDERED: VANCOMYCIN HCL 1,250 MG in SODIUM CHLORIDE 0.9% 250 ML IV SCH (01:00)
[2023-04-18 06:53] LABS: Albumin Globulin Ratio 1.2 (0.9-2); Albumin Level 3.1 gm/dl (3.4-5.0); BUN Creatinine Ratio 13.8 (10-20); Bilirubin,Total 0.8 mg/dl (0.2-1.0); C Reactive Protein 9.55 mg/dl (0-0.5); Calcium 7.7 mg/dl (8.6-10.3); Creatinine Clr Calc Pharmacy 54.1 ml/min; Est GFR (African American) 66.2 ml/min; Est GFR (Non-African American) 57.1 ml/min; Globulin 2.6 gm/dl (2.5-4.0); Potassium 3.7 mmol/L (3.5-5.1); Total Protein 5.7 gm/dl (6.0-8.3)
--- NOTE | 2023-04-18 07:02 | XRay Report ---
XR chest 1V portable HISTORY: wheeze COMPARISON: Chest CT 04/17/2023. FINDINGS: No pneumothorax. There are trace bilateral pleural effusions. The heart is mildly enlarged. There is progressive interstitial/vascular thickening consistent with pulmonary edema. No acute frac tures identified. IMPRESSION: Interval development of mild interstitial pulmonary edema and trace bilateral pleural effusions. ACT 112: Negative or not required by law. Electronically signed by: Ravi Juarez M.D. 04/18/2023 7:01 AM
[2023-04-18] MEDS: CEFEPIME 2,000 MG in SYRINGE 0 ML IV SCH ×2 (07:53→20:16)
[2023-04-18] MEDS: DONEPEZIL HCL 5 MG TAB PO SCH (07:54)
[2023-04-18 09:13] LABS: Basophils # (auto) 0.01 K/uL (0-0.2); Basophils % (auto) 0.2 %; Eosinophils # (auto) 0.07 K/uL (0-0.50); Eosinophils % (auto) 1.7 %; Hematocrit (blood only) 35.4 % (42.0-52.0); Hemoglobin 12.2 g/dl (14.0-18.0); Immature Granulocytes # (auto) 0.01 K/uL (0.01-0.20); Immature Granulocytes % (auto) 0.2 %; Lymphocytes # (auto) 0.32 K/uL (1.2-3.4); Lymphocytes % (auto) 7.8 %; Mean Corpuscular Hemoglobin 31.9 pg (25.0-34.0); Mean Corpuscular Hgb Conc 34.5 g/dL (32.0-36.0); Mean Corpuscular Volume 92.7 fL (80.0-100.0); Mean Platelet Volume 10.8 fL (9.4-12.4); Monocytes # (auto) 0.35 K/uL (0.11-0.59); Monocytes % (auto) 8.5 %; Neutrophils # (auto) 3.36 K/uL (1.40-6.50); Neutrophils % (auto) 81.6 %; Platelet Count 79 K/uL (130-400); RDW Coefficient of Variation 12.3 % (11.5-14.5); RDW Standard Deviation 41.8 fL (36.4-46.3); Red Blood Count 3.82 M/uL (4.70-6.10); White Blood Count 4.12 K/ul (4.8-10.8)
--- NOTE | 2023-04-18 10:05 | Hospitalist Progress Note ---
Date of Service April 18, 2023 Assessment & Plan (1) Sepsis: Plan: Worsening clinical picture in the last 24 hours with persistent fever overnight, delirium and malaise. PLTs decreased and CRP increased. Leukopenia now present. Although not unexpected to see additional fever in the first 24 hours of antibiotics, he still is reporting feeling unwell and doesn't appear to be clinically improved. His appearance is also somewhat skewed because he was just trying very hard to climb out of bed unsuccessfully. Considering LP for additional investigation, however, there are concerns for complications from family. Platelets are low likely related to consumption from sepsis process, but this creates additional risk of bleed, hematoma. Will add acyclovir to empiric broad antibiotics and request infectious disease specialist. Lactate yesterday was negative. No additional fluids at this time given CXR findings last night and given he is not tachycardic or hypotensive this am. He is eating, which is positive. Possible viral illness, we did take him off scheduled meclizine, but doubt toxicity from this. (2) Fever: Plan: Unclear etiology-urine clear, CXR and later CT chest without evidence of pneumonia, meningitis considered but LP patient and family declined LP, Lyme reveals a h/o exposure with no active infection. He does have thrombocytopenic but no other LFT abnormalities and no h/o known tick exposure that would suggest rickettsial illness. No other skin findings, no heart murmur, no evidence of GI illness. Blood cultures preliminarily negative. Respiratory biofire panel negative. Cont empiric cefepime, vanc, ampicillin given headache and fever with neck stiffness and no other source of infection. Adding acyclovir this am empirically pending ID thoughts and recs. (3) Weakness: Plan: plan as above. Cont supportive care. PT/OT (4) Urinary incontinence: Plan: Some incontinence overnight but no evidence of urinary retention on scheduled bladder scans. Condom catheter in place. No evidence of infection on UA. (5) Thrombocytopenia: Plan: No prior records available to eval baseline. No evidence of DIC, thrombocytopenia likely related to consumption in sepsis. Hold DVT chemoprophylaxis at this time and trend CBC in am. (6) Ambulatory dysfunction: Plan: frequent falls, however, none since January per who is at bedside and assists with the history today. Will also hold midodrine and add back if hypotensive. Check orthostatics qshift. PT/OT (7) Dementia: Plan: chronic, mentating at his baseline after reorientation this morning. takes donepezil which will be continued. Hospital delirium overnight. Cont to reorient as needed. Good day/night cycles. (8) Vertigo: Plan: chronic, stable and no reports of vertigo at this time. Hold daily meclizine as noted above. SCDs/ambulation Full Code Dispo-cont hospitalization. I did contact his by phone and explained the situation overnight, updating her on all studies. I expressed concern that an LP should be considered with no other clear evidence of infection in somewhat who still is appearing ill this morning. She said she wasn't able to make that decision and gave me her daughter's number to speak with her, however, she was expressing concern about a possible complication with this procedure. We decided it would be best to let the ID specialist weigh in on the need for this, knowing we can provide some empiric treatment at the current time. She expressed confidence in that plan verbally. Consultation was placed. I spent a total [id number] coordinating, documenting, and providing care for this patient excluding time spent in the performance of separately billed services Kia Barlow DO [facility] Hospitalist Admission and Anticipated Discharge Date Admission Date: April 18, 2023 Subjective 83 yo M presents with fever, weakness Overnight he developed delirium and mitts were placed. SOB developed and CXR revealed possible pulmonary congestion IVF stopped, Lasix 20mg IV given O2 sat via bedside pulse ox was 93-96% on room air. He was sideways in the bed with gown off and condom cath out of place Clear yellow urine in catheter bag I was able to straighten him up in bed He informed me he felt trapped, after talking for a bit he was reoriented and verbalized that he was at the hospital in [facility] He verbalized he didn't know what was making him so sick and states he didn't realize he would get this bad He was able to eat breakfast this morning Temp overnight to 38C. I spoke with him about an LP and described the procedure as there is no other clear source of infection He was agreeable. I contacted his by phone, and she expressed some hesitation Platelets are lower today 99-->79, uncertain baseline but currently requesting records from his PCP office in [place] area CRP also elevated 2.94-->9.55 today ROS limited 2/2 delirium Physical Exam Physical Exam: CONSTITUTIONAL: WNWD, vitals as above, generally ill-appearing, NAD, delirium EYES: normal conjunctivae, no scleral icterus ENT: external ear and nose normal NECK: trachea midline RESPIRATORY: clear to auscultation bilaterally, no crackles, rales or wheezes, normal respiratory effort CARDIOVASCULAR: regular rate and rhythm, S1 and 2 heard without murmurs, gallops or rubs, no JVD, no peripheral edema CHEST: inspection of chest was normal GASTROINTESTINAL: soft, nontender, ND, no guarding MUSCULOSKELETAL: strength 5/5 throughout, head is normocephalic and atraumatic SKIN: warmer than normal and dry, no rashes NEUROLOGIC: CN 2-12 grossly intact, no sensory deficit, normal cognition, normal speech, no tremor PSYCHIATRIC: alert cooperative and oriented to person and place after a time reorienting him. Results & Data Results & Data Vital Signs (Past 12 Hours) Vital Signs Temp Pulse Pulse Resp BP Pulse Ox O2 Del Method 04/18/23 07:15 37.0 C 74 16 111/61 94 Room Air 04/18/23 07:40 76 04/18/23 05:02 96 Room Air 04/18/23 03:35 36.9 C 75 18 112/64 96 Nasal Cannula 04/17/23 22:05 104 H 04/17/23 23:34 Nasal Cannula 04/17/23 23:29 37.3 C 04/17/23 22:50 98 H 18 97 Nasal Cannula 04/17/23 22:10 38 C H 105 H 28 H 145/77 H 93 Nasal Cannula O2 Flow Rate 04/18/23 07:15 04/18/23 07:40 04/18/23 05:02 04/18/23 03:35 1 04/17/23 22:05 04/17/23 23:34 2 04/17/23 23:29 04/17/23 22:50 2 04/17/23 22:10 2 Laboratory Results Short CBC 04/18/23 Range/Units 08:42 WBC 4.12 L (4.8-10.8) K/ul Hgb 12.2 L (14.0-18.0) g/dl Hct 35.4 L (42.0-52.0) % Plt Count 79 L (130-400) K/uL BMP 04/18/23 06:13 Sodium 139 Potassium 3.7 Chloride 109 H Carbon Dioxide 25 BUN 16 Creatinine 1.16 Glucose 102 H Calcium 7.7 L Liver Function 04/18/23 Range/Units 06:13 Total Bilirubin 0.8 (0.2-1.0) mg/dl AST 28 (13-39) U/L ALT 16 (7-52) U/L Alkaline Phosphatase 73 (34-104) U/L Albumin 3.1 L (3.4-5.0) gm/dl Diagnostic Findings Chest CT 04/17/23 16:23 CT chest diagnostic wo con CLINICAL HISTORY: eval mediastinal LAD further TECHNIQUE: Multidetector row helical CT of the chest was performed. Coronal and sagittal reformations were obtained. Automated dose lowering techniques and/or adjustment according to patient size were utilized for this exam. CT DOSE: 2162.87 mGy.cm Comparison: Comparison is made to chest radiograph 04/17/2023 FINDINGS: Lungs and pleura: Interstitial thickening is seen. Atelectasis versus scarring is seen in the lower lungs. Heart and pericardium: Heart size is normal. No pericardial effusion. Vessels: Unremarkable. Mediastinum and kim: Numerous enlarged mediastinal lymph nodes are seen. Chest wall and lower neck: No axillary or lower cervical lymphadenopathy is seen. Abdomen: For findings below the diaphragm, please refer to CT of the abdomen dated the same. Bones: Unremarkable. IMPRESSION: Mediastinal lymphadenopathy is seen of uncertain etiology. Atelectasis versus scarring is seen without evidence of chyna pneumonia. ACT 112: Negative or not required by law. Electronically signed by: Wilton Huitron M.D. 04/17/2023 10:15 PM Chest X-Ray 04/17/23 22:09 XR chest 1V portable HISTORY: wheeze COMPARISON: Chest CT 04/17/2023. FINDINGS: No pneumothorax. There are trace bilateral pleural effusions. The heart is mildly enlarged. There is progressive interstitial/vascular thickening consistent with pulmonary edema. No acute fractures identified. IMPRESSION: Interval development of mild interstitial pulmonary edema and trace bilateral pleural effusions. ACT 112: Negative or not required by law. Electronically signed by: Ravi Juarez M.D. 04/18/2023 7:01 AM
--- NOTE | 2023-04-18 10:52 | Pharmacy Report ---
Pharmacy PK ABX Note - Date of Service April 18, 2023 - Assessment and Plan Assessment 83 year old M receiving empiric broad spectrum regimen including vancomycin, cefepime, ampicillin, and acyclovir for treatment of sepsis/possible [employer] infection. Pertinent microbiologic data includes: Blood cultures x 2 (no growth to date). Unsure of baseline renal function, but SCr stable over last 2 days (1.16 mg/dL today). ID consulted - broad spectrum antibiotics reasonable at this time. Day # 2 of antimicrobial therapy. Plan Vancomycin * Loading dose: 1750 mg IV x 1 * Maintenance dose: originally ordered 1250 mg IV every 24 hours, but will increase to 1500 mg IV q24h to increase probability of target AUC/GIANCARLO attainment * Regimen is predicted to achieve target AUC/GIANCARLO of 400-600 mg/L.hr * Random level ordered for: 04/20/23 Pharmacy will continue to follow and will adjust dose/frequency as necessary. Thank you. Pharmacy has transitioned to AUC monitoring for vancomycin. AUC/GIANCARLO is the preferred PK/PD target and is associated with decreased risk of nephrotoxicity compared to traditional trough targets.
[2023-04-18] MEDS: ACYCLOVIR SOD IV SCH ×2 (11:07→18:27)
[2023-04-18] MEDS: DEXTROSE 5% IV SCH ×2 (11:07→18:27)
[2023-04-18] MEDS: ACETAMINOPHEN 325 MG TAB PO PRN (14:08)
[2023-04-18] MEDS: VANCOMYCIN HCL 1,500 MG in SODIUM CHLORIDE 0.9% 500 ML IV SCH (15:45)
[2023-04-18] MEDS: LATANOPROST 0.005% OP SOLN 2.5 ML BTL OPB SCH (20:16)
[2023-04-19] MEDS: AMPICILLIN 2,000 MG in SODIUM CHLOR 0.9% AD-VAN 100 ML IV SCH ×6 (00:23→21:19)
[2023-04-19] MEDS: DEXTROSE 5% IV SCH ×3 (02:41→18:36)
[2023-04-19] MEDS: ACYCLOVIR SOD IV SCH ×3 (02:41→18:36)
[2023-04-19 06:57] LABS: Basophils # (auto) 0.01 K/uL (0-0.2); Basophils % (auto) 0.2 %; Eosinophils % (auto) 4.9 %; Hematocrit (blood only) 34.4 % (42.0-52.0); Hemoglobin 11.9 g/dl (14.0-18.0); Immature Granulocytes # (auto) 0.02 K/uL (0.01-0.20); Immature Granulocytes % (auto) 0.5 %; Lymphocytes % (auto) 9.9 %; Mean Corpuscular Hemoglobin 31.3 pg (25.0-34.0); Mean Corpuscular Hgb Conc 34.6 g/dL (32.0-36.0); Mean Corpuscular Volume 90.5 fL (80.0-100.0); Mean Platelet Volume 10.8 fL (9.4-12.4); Monocytes # (auto) 0.33 K/uL (0.11-0.59); Monocytes % (auto) 8.1 %; Neutrophils # (auto) 3.09 K/uL (1.40-6.50); Neutrophils % (auto) 76.4 %; Platelet Count 88 K/uL (130-400); RDW Coefficient of Variation 12.1 % (11.5-14.5); RDW Standard Deviation 39.9 fL (36.4-46.3); White Blood Count 4.05 K/ul (4.8-10.8)
[2023-04-19 07:25] LABS: Albumin Globulin Ratio 1.2 (0.9-2); Bilirubin,Total 0.5 mg/dl (0.2-1.0); Calcium 7.7 mg/dl (8.6-10.3); Creatinine Clr Calc Pharmacy 51.9 ml/min; Est GFR (African American) 62.9 ml/min; Est GFR (Non-African American) 54.3 ml/min; Globulin 2.5 gm/dl (2.5-4.0); Potassium 3.6 mmol/L (3.5-5.1); Total Protein 5.5 gm/dl (6.0-8.3)
[2023-04-19] MEDS: DONEPEZIL HCL 5 MG TAB PO SCH (07:56)
[2023-04-19] MEDS: CEFEPIME 2,000 MG in SYRINGE 0 ML IV SCH (07:56)
[2023-04-19] MEDS: ACETAMINOPHEN 325 MG TAB PO PRN ×2 (11:23→18:34)
[2023-04-19] MEDS: VANCOMYCIN HCL 1,500 MG in SODIUM CHLORIDE 0.9% 500 ML IV SCH (15:53)
[2023-04-19] MEDS: cefTRIAXone SODIUM 2,000 MG in DEXTROSE 5% 50 ML IV SCH (19:55)
--- NOTE | 2023-04-19 20:08 | Hospitalist Progress Note ---
Date of Service April 19, 2023 Assessment & Plan (1) Sepsis: Plan: Worsening clinical picture in the last 24 hours with persistent fever overnight, delirium and malaise. PLTs decreased and CRP increased. Leukopenia now present. Although not unexpected to see additional fever in the first 24 hours of antibiotics, he still is reporting feeling unwell and doesn't appear to be clinically improved. His appearance is also somewhat skewed because he was just trying very hard to climb out of bed unsuccessfully. Considering LP for additional investigation, however, there are concerns for complications from family. Platelets are low likely related to consumption from sepsis process, but this creates additional risk of bleed, hematoma. Will add acyclovir to empiric broad antibiotics and request infectious disease specialist. Lactate yesterday was negative. No additional fluids at this time given CXR findings last night and given he is not tachycardic or hypotensive this am. He is eating, which is positive. Possible viral illness, we did take him off scheduled meclizine, but doubt toxicity from this. 04/19: +delirium and fevers persist despite broad coverage abx with acyclovir. Per ID recommend LP which will be performed in am. Added PCR check for anaplasma and babesia. Consider addition of doxycycline empirically. Tmrw will obtain opening pressure, culture and GS, [place] virus IgM, VZV/HSV PCR, and cryptococcus Ag. (2) Fever: Plan: Unclear etiology-urine clear, CXR and later CT chest without evidence of pneumonia, meningitis considered but LP patient and family declined LP, Lyme reveals a h/o exposure with no active infection. He does have thrombocytopenic but no other LFT abnormalities and no h/o known tick exposure that would suggest rickettsial illness. No other skin findings, no heart murmur, no evidence of GI illness. Blood cultures preliminarily negative. Respiratory biofire panel negative. Cont empiric cefepime, vanc, ampicillin given headache and fever with neck stiffness and no other source of infection. Cont empiric acyclovir. LP tomorrow. If clear, consider adding empiric doxycycline and touch base with ID regarding de-escalation of other agents. (3) Weakness: Plan: plan as above. Cont supportive care. PT/OT (4) Urinary incontinence: Plan: Some incontinence overnight but no evidence of urinary retention on scheduled bladder scans. Condom catheter in place. No evidence of infection on UA. Urine does appear somewhat concentrated. Will add some IVF overnight. (5) Thrombocytopenia: Plan: No prior records available to eval baseline. No evidence of DIC, thrombocytopenia likely related to consumption in sepsis. Hold DVT chemoprophylaxis given PLT 88 today. Trend CBC. (6) Ambulatory dysfunction: Plan: frequent falls, however, none since January per who is at bedside and assists with the history today. Will also hold midodrine and add back if hypotensive. Check orthostatics qshift. PT/OT (7) Dementia: Plan: chronic with delirium. Cont to reorient as needed. Good day/night cycles. (8) Vertigo: Plan: chronic, stable and no reports of vertigo at this time. Hold daily meclizine as noted above. SCDs/ambulation-chemoprophylaxis contraindicated in setting of thrombocytopenia. Full Code Dispo-cont hospitalization. was at bedside. We reviewed the plan for LP tomorrow. She expressed that she had permission from his daughters to move forward with this, also. All questions were answered to her satisfaction. I spent a total [id number] coordinating, documenting, and providing care for this patient excluding time spent in the performance of separately billed services Kia Barlow DO [facility] Admission and Anticipated Discharge Date Admission Date: April 18, 2023 Subjective 83 yo M presents with fever, weakness Remains delirious Continuously reoriented by who is at bedside for most of the day Febrile to 102 today. ID consulted and saw him today recommends LP reports she spoke with his daughters and all are on board for LP tomorrow Coordinated this with IR for tomorrow. Peripheral IV blew and with vancomycin this can be very caustic to peripheral tissues, recommend ultrasound-guided IV at this point. Review of Systems Review of Systems: Unable to gauge review of systems secondary to delirium. Physical Exam Physical Exam: CONSTITUTIONAL: WNWD, vitals as above, generally ill-appearing, NAD, delirium EYES: normal conjunctivae, no scleral icterus ENT: external ear and nose normal NECK: trachea midline RESPIRATORY: clear to auscultation bilaterally, no crackles, rales or wheezes, normal respiratory effort . Limited exam as patient was not able to lean forward. CARDIOVASCULAR: regular rate and rhythm, S1 and 2 heard without murmurs, gallops or rubs, no JVD, no peripheral edema CHEST: inspection of chest was normal GASTROINTESTINAL: soft, nontender, ND, no guarding MUSCULOSKELETAL: strength 5/5 throughout, head is normocephalic and atraumatic SKIN: warmer than normal and dry, no rashes NEUROLOGIC: CN 2-12 grossly intact, no sensory deficit, normal cognition, normal speech, no tremor PSYCHIATRIC: +delirium, Results & Data Results & Data Vital Signs (Past 12 Hours) Vital Signs Temp Pulse Pulse Resp BP Pulse Ox O2 Del Method 04/19/23 17:43 37.6 C H 91 H 20 168/74 H 93 Room Air 04/19/23 16:17 37.5 C 61 18 95/60 L 92 Room Air 04/19/23 13:55 65 04/19/23 12:51 38.9 C H 94 H 18 132/85 95 Room Air Laboratory Results Short CBC 04/19/23 Range/Units 06:06 WBC 4.05 L (4.8-10.8) K/ul Hgb 11.9 L (14.0-18.0) g/dl Hct 34.4 L (42.0-52.0) % Plt Count 88 L (130-400) K/uL BMP 04/19/23 06:06 Sodium 138 Potassium 3.6 Chloride 107 Carbon Dioxide 26 BUN 17 Creatinine 1.21 Glucose 102 H Calcium 7.7 L Liver Function 04/19/23 Range/Units 06:06 Total Bilirubin 0.5 (0.2-1.0) mg/dl AST 36 (13-39) U/L ALT 18 (7-52) U/L Alkaline Phosphatase 66 (34-104) U/L Albumin 3.0 L (3.4-5.0) gm/dl Medications Administered Current Inpatient Medications Acetaminophen (Acetaminophen 325 Mg Tab) 650 mg PO Q4H PRN PRN Reason: Pain or Fever Stop: 05/17/23 12:10 Last Admin: 04/19/23 18:34 Dose: 650 mg Donepezil HCl (Donepezil Hcl 5 Mg Tab) 5 mg PO QAM [facility] Stop: 05/17/23 12:10 Last Admin: 04/19/23 07:56 Dose: 5 mg Ampicillin Sodium 2,000 mg/ (Sodium Chloride) 100 mls @ 200 mls/hr IV Q4H [facility] Stop: 04/27/23 16:59 Last Infusion: 04/19/23 19:07 Dose: Infused Acyclovir Sodium 875 mg/ (Dextrose) 267.5 mls @ 250 mls/hr IV Q8H [facility] Stop: 04/28/23 10:29 Last Admin: 04/19/23 18:36 Dose: 250 mls/hr Vancomycin HCl 1,500 mg/ (Sodium Chloride) 530 mls @ 200 mls/hr IV Q24H [facility] Stop: 04/28/23 15:59 Last Infusion: 04/19/23 19:07 Dose: Infused Ceftriaxone Sodium 2,000 mg/ (Dextrose) 70 mls @ 100 mls/hr IV Q12H [facility]; Protocol Stop: 04/29/23 18:59 Latanoprost (Latanoprost 0.005% Op Soln 2.5 Ml Btl) 1 drops OPB HS [facility] Stop: 05/17/23 20:59 Last Admin: 04/18/23 20:16 Dose: 1 drops Miscellaneous Information (Vancomycin Consult Active) 1 each N/A UD PRN PRN Reason: Consult Stop: 05/17/23 16:23 Polyethylene Glycol (Polyethylene (Miralax) 17 Gm Pack) 17 gm PO DAILY PRN PRN Reason: Constipation Stop: 05/17/23 12:10
[2023-04-19] MEDS: D5W AND 1/2NSS 1,000 ML IV SCH (20:30)
[2023-04-19] MEDS: LATANOPROST 0.005% OP SOLN 2.5 ML BTL OPB SCH (21:19)
[2023-04-20] MEDS: AMPICILLIN 2,000 MG in SODIUM CHLOR 0.9% AD-VAN 100 ML IV SCH ×6 (01:22→23:01)
[2023-04-20 02:13] LABS: 18KDIGG Band REACTIVE; 23KDIGG Band NON-REACTIVE; 23KDIGM Band NON-REACTIVE; 28KDIGG Band NON-REACTIVE; 30KDIGG Band NON-REACTIVE; 39KDIGG Band REACTIVE; 39KDIGM Band NON-REACTIVE; 41KDIGG Band REACTIVE; 41KDIGM Band NON-REACTIVE; 45KDIGG Band NON-REACTIVE; 58KDIGG Band NON-REACTIVE; 66KDIGG Band NON-REACTIVE; 93KDIGG Band NON-REACTIVE; Lyme Antibodies, WB IgG NEGATIVE (NEGATIVE); Lyme Antibodies, WB IgM NEGATIVE (NEGATIVE)
[2023-04-20] MEDS: DEXTROSE 5% IV SCH ×3 (03:16→17:04)
[2023-04-20] MEDS: ACYCLOVIR SOD IV SCH ×3 (03:16→17:04)
[2023-04-20] MEDS: D5W AND 1/2NSS 1,000 ML IV SCH (05:06)
[2023-04-20] MEDS ORDERED: LEVALBUTEROL 1.25 MG/3 ML NEB NEB STA (05:27)
[2023-04-20] MEDS ORDERED: IPRATROPIUM BROMIDE NEB SOLN 0.02% 2.5 ML VIAL INH STA (05:27)
[2023-04-20] MEDS ORDERED: XOPENEX/ATROVENT 1.25mg/0.5MG NEB COMBO NEB STA (05:27)
[2023-04-20] MEDS ORDERED: FUROSEMIDE INJ 20 MG/2 ML VIAL IV ONE (05:29)
[2023-04-20] MEDS ORDERED: MAGNESIUM SULFATE / D5W 1 GM/100 ML BAG IV ONE ×2 (06:01→08:50)
[2023-04-20] MEDS: cefTRIAXone SODIUM 2,000 MG in DEXTROSE 5% 50 ML IV SCH ×2 (06:06→18:50)
[2023-04-20 06:11] LABS: Eosinophils # (auto) 0.15 K/uL (0-0.50); Eosinophils % (auto) 3.5 %; Hematocrit (blood only) 34.6 % (42.0-52.0); Hemoglobin 12.3 g/dl (14.0-18.0); Immature Granulocytes # (auto) 0.03 K/uL (0.01-0.20); Immature Granulocytes % (auto) 0.7 %; Lymphocytes % (auto) 11.8 %; Mean Corpuscular Hemoglobin 31.9 pg (25.0-34.0); Mean Corpuscular Hgb Conc 35.5 g/dL (32.0-36.0); Mean Corpuscular Volume 89.6 fL (80.0-100.0); Mean Platelet Volume 10.4 fL (9.4-12.4); Monocytes # (auto) 0.32 K/uL (0.11-0.59); Monocytes % (auto) 7.5 %; Neutrophils # (auto) 3.24 K/uL (1.40-6.50); Neutrophils % (auto) 76.5 %; Platelet Count 92 K/uL (130-400); RDW Coefficient of Variation 11.9 % (11.5-14.5); RDW Standard Deviation 39.2 fL (36.4-46.3); Red Blood Count 3.86 M/uL (4.70-6.10); White Blood Count 4.24 K/ul (4.8-10.8)
[2023-04-20] MEDS ORDERED: METOPROLOL TARTRATE 1 MG/ML VIAL IV STA (06:21)
[2023-04-20 06:32] LABS: Albumin Globulin Ratio 1.2 (0.9-2); Albumin Level 3.1 gm/dl (3.4-5.0); BUN Creatinine Ratio 13.5 (10-20); Bilirubin,Total 0.6 mg/dl (0.2-1.0); Calcium 7.6 mg/dl (8.6-10.3); Creatinine Clr Calc Pharmacy 60.4 ml/min; Est GFR (African American) 75.5 ml/min; Est GFR (Non-African American) 65.2 ml/min; Globulin 2.6 gm/dl (2.5-4.0); Magnesium 1.7 mg/dl (1.7-2.4); Potassium 3.5 mmol/L (3.5-5.1); Total Protein 5.7 gm/dl (6.0-8.3)
--- NOTE | 2023-04-20 07:22 | XRay Report ---
XR chest 1V portable HISTORY: 83 years-old Male sob acute shortness of breath COMPARISON: 04/17/2023 TECHNIQUE: AP view of the chest FINDINGS: Cardiac silhouette is enlarged. Pulmonary vascular congestion with interstitial coarsening and ill-de fined bibasilar predominant airspace opacities, mildly progressed. Bones appear grossly intact. Small pleural effusions. No pneumothorax. IMPRESSION: 1. Cardiomegaly with mildly progressed pulmonary edema. 2. Small pleural effusions with mild bibasilar consolidation. ACT 112: Negative or not required by law. The above report was generated using voice recognition software. It may contain grammatical, syntax o r spelling errors. Electronically signed by: Hebert Estrada M.D. 04/20/2023 7:20 AM
--- NOTE | 2023-04-20 07:32 | Pharmacy Report ---
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 Pertinent microbiologic data includes: Blood cultures x 2 from 04/17/23 (no growth to date). Blood cultures x 2 from 04/19/23 pending. SCr stable (1.04 mg/dL today). ID consulted - broad spectrum antibiotics reasonable at this time. Patient for LP today. Day # 3 of antimicrobial therapy. Plan 04/20 * random level this morning 9.5 mcg/mL which is associated with an AUC < 400 mg/L.hr * Increase vancomycin to 1250 mg IV q12 hours which is associated with an increased probability of target AUC/GIANCARLO attainment * Random level ordered for 04/22/2304/18 Vancomycin * Loading dose: 1750 mg IV x 1 * Maintenance dose: originally ordered 1250 mg IV every 24 hours, but will increase to 1500 mg IV q24h to increase probability of target AUC/GIANCARLO attainment * Regimen is predicted to achieve target AUC/GIANCARLO of 400-600 mg/L.hr * Random level ordered for: 04/20/23 Pharmacy will continue to follow and will adjust dose/frequency as necessary. Thank you. Pharmacy has transitioned to AUC monitoring for vancomycin. AUC/GIANCARLO is the preferred PK/PD target and is associated with decreased risk of nephrotoxicity compared to traditional trough targets.
[2023-04-20] MEDS: POTASSIUM CHLORIDE / WTR 10 MEQ/100 ML PLCT IV SCH ×5 (08:34→12:29)
[2023-04-20] MEDS ORDERED: LORazepam 2 MG/1 ML VIAL IV STA ×3 (08:37→21:47)
[2023-04-20] MEDS: VANCOMYCIN HCL 1,250 MG in SODIUM CHLORIDE 0.9% 250 ML IV SCH ×2 (10:00→23:35)
[2023-04-20] MEDS: DONEPEZIL HCL 5 MG TAB PO SCH (15:12)
--- NOTE | 2023-04-20 16:38 | Hospitalist Progress Note ---
Date of Service April 20, 2023 Assessment & Plan (1) Sepsis: Plan: Admitted with gradual going downhill for a few months and was brought in with increasing weakness and inability to walk around and also behaving odd No evidence of sepsis on presentation but subsequently clinical pictures were sent with fever, delirium and malaise with increasing inflammatory/infection marker Leukopenia now present. Developed fever on second time even with antibiotic and additional antibiotics with started including intravenous acyclovir for possible meningitis Lactate yesterday was negative. Possible viral infection and so far blood cultures and urine examination have been negative Difficult to do complete neurological examination Appreciate ID recommendation for LP which is a scheduled this morning but failed due to unsteady patient and risk of the procedure Added PCR check for anaplasma and babesia-PCR's pending. Discussed with the in detail today and the patient remains afebrile for the last more than 24 hours Will send urine for culture and repeat blood cultures are pending Will get MRI of the head with and without contrast to rule out any acute events in the brain We will talk to radiologist for possible LP trial 1 more time (2) Fever: Plan: Unclear etiology-urine clear, CXR and later CT chest without evidence of pneumonia, meningitis considered but LP patient and family declined LP, Lyme reveals a h/o exposure with no active infection. He does have thrombocytopenic but no other LFT abnormalities and no h/o known tick exposure that would suggest rickettsial illness. No other skin findings, no heart murmur, no evidence of GI illness. Blood cultures preliminarily negative. Respiratory biofire panel negative. Echo has been negative for any vegetations Cont empiric cefepime, vanc, ampicillin given headache and fever with neck stiffness and no other source of infection. Cont empiric acyclovir. Awaiting anaplasmosis and Babesia PCR test -initially smears have been negative (3) Weakness: Plan: plan as above. Cont supportive care. PT/OT (4) Urinary incontinence: Plan: Some incontinence overnight but no evidence of urinary retention on scheduled bladder scans. Condom catheter in place. No evidence of infection on UA. Urine does appear somewhat concentrated. Will add some IVF overnight. We will send urine culture and sensitivity (5) Thrombocytopenia: Plan: No prior records available to eval baseline. No evidence of DIC, thrombocytopenia likely related to consumption in sepsis. Hold DVT chemoprophylaxis given PLT 88 today. Trend CBC. Chronic thrombocytopenia platelets 92 today (6) Ambulatory dysfunction: Plan: frequent falls, however, none since January per who is at bedside and assists with the history today. Will also hold midodrine and add back if hypotensive. Check orthostatics qshift. PT/OT (7) Dementia: Plan: chronic with delirium. Cont to reorient as needed. Good day/night cycles. (8) Vertigo: Plan: chronic, stable and no reports of vertigo at this time. Hold daily meclizine as noted above. SCDs/ambulation-chemoprophylaxis contraindicated in setting of thrombocytopenia. Full Code Dispo-cont hospitalization. was at bedside. Has had a long discussion with the regarding possible infection without any source yet or organism yet. Admission and Anticipated Discharge Date Admission Date: April 18, 2023 Subjective 04/20/2023 The patient was seen and examined in medical telemetry unit in presence of the He has been gradually going downhill for a few months and was brought in with increasing weakness and inability to walk around and also behaving odd No fever and or chills at presentation without any elevation of the white count or tachycardia Noted to have high fever in the hospital and was started with intravenous antibiotics and other medications with continued fever in the hospital Could not do any LP today due to agitation and unsteadiness even with intravenous Ativan Review of Systems Review of Systems: Unobtainable due to cognitive status Physical Exam Physical Exam: Lying in bed without any acute distress but remains drowsy Constitutional: well developed, well nourished, + ill appearing and + obese Eyes: Closed ENMT: external ear and nose normal, oropharynx normal Neck: Movement of the neck libido with Rohith today Respiratory: no respiratory distress Auscultation: lungs clear to auscultation bilaterally Cardiovascular: Rate/Rhythm: regular rate and regular rhythm; not tachycardic Heart Sounds: normal S1 and normal S2; no murmur Extremities: + edema (Trace edema bilaterally) Gastrointestinal (Abdomen): Inspection/Auscultation: normal bowel sounds; abdomen not distended Percussion/Palpation: abdomen soft; abdomen nontender Musculoskeletal: No acute arthritis involving any of the joint Neurologic: + confused Lymphatic: no cervical or axillary lymphadenopathy Results & Data Results & Data Vital Signs (Past 12 Hours) Vital Signs Temp Pulse Pulse Resp BP BP Pulse Ox 04/20/23 16:16 36.8 C 84 20 122/61 95 04/20/23 15:49 04/20/23 15:38 91 H 04/20/23 09:05 89 04/20/23 11:27 37.0 C 69 20 128/72 93 04/20/23 08:19 37.2 C 86 20 137/71 91 04/20/23 08:14 77 129/65 04/20/23 08:13 36.9 C 77 18 129/65 93 04/20/23 06:47 86 141/77 H 04/20/23 05:57 37.1 C 86 16 141/77 H 98 04/20/23 05:39 86 23 98 O2 Del Method O2 Flow Rate 04/20/23 16:16 Nasal Cannula 2 04/20/23 15:49 Nasal Cannula 2 04/20/23 15:38 04/20/23 09:05 04/20/23 11:27 Nasal Cannula 2 04/20/23 08:19 Nasal Cannula 2 04/20/23 08:14 04/20/23 08:13 Nasal Cannula 2 04/20/23 06:47 04/20/23 05:57 Nasal Cannula 2 04/20/23 05:39 Nasal Cannula 3 Laboratory Results Short CBC 04/20/23 Range/Units 05:44 WBC 4.24 L (4.8-10.8) K/ul Hgb 12.3 L (14.0-18.0) g/dl Hct 34.6 L (42.0-52.0) % Plt Count 92 L (130-400) K/uL BMP 04/20/23 06:02 Sodium 136 Potassium 3.5 Chloride 105 Carbon Dioxide 27 BUN 14 Creatinine 1.04 Glucose 108 H Calcium 7.6 L Liver Function 04/20/23 Range/Units 06:02 Total Bilirubin 0.6 (0.2-1.0) mg/dl AST 36 (13-39) U/L ALT 21 (7-52) U/L Alkaline Phosphatase 69 (34-104) U/L Albumin 3.1 L (3.4-5.0) gm/dl Medications Administered Current Inpatient Medications Acetaminophen (Acetaminophen 325 Mg Tab) 650 mg PO Q4H PRN PRN Reason: Pain or Fever Stop: 05/17/23 12:10 Last Admin: 04/19/23 18:34 Dose: 650 mg Donepezil HCl (Donepezil Hcl 5 Mg Tab) 5 mg PO QAM [facility] Stop: 05/17/23 12:10 Last Admin: 04/20/23 15:12 Dose: 5 mg Ampicillin Sodium 2,000 mg/ (Sodium Chloride) 100 mls @ 200 mls/hr IV Q4H [facility] Stop: 04/27/23 16:59 Last Infusion: 04/20/23 14:39 Dose: Infused Acyclovir Sodium 875 mg/ (Dextrose) 267.5 mls @ 250 mls/hr IV Q8H [facility] Stop: 04/28/23 10:29 Last Infusion: 04/20/23 14:07 Dose: Infused Ceftriaxone Sodium 2,000 mg/ (Dextrose) 70 mls @ 100 mls/hr IV Q12H [facility]; Protocol Stop: 04/29/23 18:59 Last Infusion: 04/20/23 06:50 Dose: Infused Dextrose/Sodium Chloride (D5w And 1/2nss) 1,000 mls @ 125 mls/hr IV .Q8H [facility] Last Infusion: 04/20/23 13:33 Dose: Infused Vancomycin HCl 1,250 mg/ (Sodium Chloride) 275 mls @ 200 mls/hr IV Q12 [facility] Stop: 04/28/23 08:59 Last Infusion: 04/20/23 13:12 Dose: Infused Latanoprost (Latanoprost 0.005% Op Soln 2.5 Ml Btl) 1 drops OPB HS [facility] Stop: 05/17/23 20:59 Last Admin: 04/19/23 21:19 Dose: 1 drops Miscellaneous Information (Vancomycin Consult Active) 1 each N/A UD PRN PRN Reason: Consult Stop: 05/17/23 16:23 Polyethylene Glycol (Polyethylene (Miralax) 17 Gm Pack) 17 gm PO DAILY PRN PRN Reason: Constipation Stop: 05/17/23 12:10
[2023-04-20] MEDS: LATANOPROST 0.005% OP SOLN 2.5 ML BTL OPB SCH (23:35)
[2023-04-21] MEDS ORDERED: Nursing to Pharmacy Communication SCH (01:15)
[2023-04-21] MEDS: AMPICILLIN 2,000 MG in SODIUM CHLOR 0.9% AD-VAN 100 ML IV SCH ×4 (02:55→15:29)
[2023-04-21] MEDS: DEXTROSE 5% IV SCH ×3 (02:55→17:13)
[2023-04-21] MEDS: ACYCLOVIR SOD IV SCH ×3 (02:55→17:13)
[2023-04-21] MEDS: cefTRIAXone SODIUM 2,000 MG in DEXTROSE 5% 50 ML IV SCH ×2 (06:07→18:33)
[2023-04-21] MEDS: VANCOMYCIN HCL 1,250 MG in SODIUM CHLORIDE 0.9% 250 ML IV SCH (07:42)
[2023-04-21] MEDS: DONEPEZIL HCL 5 MG TAB PO SCH (07:42)
[2023-04-21 08:39] LABS: Creatinine Clr Calc Pharmacy 64.1 ml/min; Est GFR (African American) 81.2 ml/min
--- NOTE | 2023-04-21 11:31 | Neurology Consultation ---
Date of Consultation April 21, 2023 Assessment & Plan (1) Sepsis: (2) Acute encephalopathy: (3) Dementia: Plan The patient has a history of sepsis on the background of a progressive age- related dementia. He has encephalopathy of multifactorial nature. I agree with obtaining an LP and an MRI. He seems calm enough to do both right now but if he is too agitated, anesthesia could sedate him temporarily so we can get the studies. Otherwise please contact me if I can be of further assistance on this case History of Present Illness Reason for Consultation: Patient is an 83-year-old, who I was asked to see, the request of Dr. Duke, for neurologic consultation regarding dementia/delirium. Requesting Physician: Dr. Duke Attending Physician: Allen Duke MD History of Present Illness Patient's significant other is in the room and adds to the history. He is had several years of memory problem typically misplacing items, word-finding difficulties and other short-term memory things Patient was admitted April 17 with fever and weakness and was found to have sepsis. He had incontinence. He is thrombocytopenia. He is had some encephalopathy on top of his delirium but he is markedly improved today. The patient denies any pain, weakness, or numbness. Allergies Allergy/AdvReac Type Severity Reaction Status Date / Time No Known Allergies Allergy Unverified 04/17/23 08:31 Home Medications Medication Instructions Recorded Confirmed Type Zn-pyg hlbn-[id number]-nbb palmet 1 cap PO DAILY 04/17/23 04/17/23 History capsule donepezil 5 mg tablet 5 mg PO QAM 04/17/23 04/17/23 History latanoprost 0.005 % eye drops 1 drp OPB HS 04/17/23 04/17/23 History meclizine 12.5 mg tablet 12.5 mg PO DAILY 04/17/23 04/17/23 History midodrine 5 mg tablet 5 mg PO BID@0700,1300 04/17/23 04/17/23 History Patient History Medical History (Updated 04/21/23 @ 11:34 by Joesph Mckeon MD) Dementia Vertigo Surgical History (Updated 04/17/23 @ 08:39 by Kia Barlow DO) S/P rotator cuff repair right Social History (Updated 04/17/23 @ 08:40 by Kia Barlow ) Smoking Status: Never smoker Hx Alcohol Use: No Hx Substance Use: No Current Living Situation: Spouse Feels Safe at Home: Yes Assistive Devices: None Exam (Neuro) Physical Exam: He is awake and alert. His speech is without obvious aphasia or dysarthria. He follows one-step commands well and is pleasant and cooperative. Knows his name, the name of his significant other, and other facts about his life mcc. He has short-term deficits. Extraocular eye muscles are intact without nystagmus. Pupils are 3 mm bilaterally reactive to light. There is no facial droop. Tongue is midline. Neck is supple without bruits. There is no cardiac murmur. With outstretched arms there is no drift. He has no resting, postural, or action tremor. Strength is 5/5 diffusely in all major muscle groups in the arms and legs with good tone and no atrophy. Sensory examination is intact that he withdraws to stimulation. Reflexes are 1/4 throughout and toes are downgoing to plantar stimulation bilaterally. Results & Data Vital Signs (Past 12 Hours) Vital Signs Temp Pulse Pulse Resp BP BP Pulse Ox 04/21/23 08:00 04/21/23 07:56 36.6 C 81 16 144/75 H 94 04/21/23 07:08 66 04/21/23 03:57 36.9 C 68 18 129/65 94 04/20/23 23:35 O2 Del Method O2 Flow Rate 04/21/23 08:00 Nasal Cannula 2 04/21/23 07:56 Nasal Cannula 2 04/21/23 07:08 04/21/23 03:57 Nasal Cannula 2 04/20/23 23:35 Nasal Cannula 2 PG Care Time/CCT Total # of Minutes Spent Total Time Spent with Patient: Total time spent is greater than 50% in coordination of care (as documented) at patient's floor/unit and/or counseling patient: Coding Level of Care Code 29297 INT INP/OBS CARE MIN Diagnoses Sepsis A41.9 Acute encephalopathy G93.40 Dementia F03.90
[2023-04-21] MEDS ORDERED: LORazepam 2 MG/1 ML VIAL IV PRN (12:15)
[2023-04-21] MEDS ORDERED: GADOBUTROL 65ML VIAL IV ONE (13:47)
--- NOTE | 2023-04-21 14:48 | Fluoroscopy Report ---
Lumbar puncture under fluoroscopy INDICATION: Fever; altered mental status PROCEDURE: Procedure and risks were explained. Informed consent was obtained. A final timeout was com pleted. The patient was placed prone on the fluoroscopic exam table. The lower lumbar region was prep ped and draped in sterile fashion. 1% lidocaine was utilized for skin anesthesia. Utilizing fluoroscopic guidance, a 20-gauge spinal needle was advanced into the intrathecal space at the L2-3 disc space level. 1 permanent spot images was obtained. Approximately 8 mL of clear CSF flui d was removed and sent to the lab for analysis. The needle was removed and Band-Aid applied. The iban ent tolerated the procedure well. Vital signs we monitored postprocedure. Total fluoroscopy time 0.25 minutes. DAP is 7.04 mcGy/m2. IMPRESSION: Lumbar puncture as above. Performed, dictated, and signed by Chun Mullins PA-C; to be co-signed by Dr. Wilton Huitron. Electronically signed by: Wilton Huitron M.D. 04/21/2023 4:58 PM
[2023-04-21] MEDS ORDERED: FUROSEMIDE 40 MG/4 ML VIAL IV ONE (15:18)
--- NOTE | 2023-04-21 15:22 | Hospitalist Progress Note ---
Date of Service April 21, 2023 Assessment & Plan (1) Sepsis: Plan: Admitted with gradual going downhill for a few months and was brought in with increasing weakness and inability to walk around and also behaving odd No evidence of sepsis on presentation but subsequently clinical pictures were sent with fever, delirium and malaise with increasing inflammatory/infection marker Leukopenia now present. Developed fever on second time even with antibiotic and additional antibiotics with started including intravenous acyclovir for possible meningitis Lactate yesterday was negative. Possible viral infection and so far blood cultures and urine examination have been negative Difficult to do complete neurological examination Appreciate ID recommendation for LP which is a scheduled this morning but failed due to unsteady patient and risk of the procedure Added PCR check for anaplasma and babesia-PCR's pending. Discussed with the in detail today and the patient remains afebrile for the last more than 24 hours Will send urine for culture and repeat blood cultures are pending Will get MRI of the head with and without contrast to rule out any acute events in the brain [employer] MRI of the head are done-awaiting results Increasing delirium with history of dementia is frustrated with the symptoms and which are not being improving She wanted to have the patient transferred to a dementia unit in [facility] Reassured that nothing more can be done for this and she wanted to have a neuro evaluation Appreciate neurology input and recommendation Advised to have LP done and MRI as a scheduled before (2) Fever: Plan: Unclear etiology-urine clear, CXR and later CT chest without evidence of pneumonia, meningitis considered but LP patient and family declined LP, Lyme reveals a h/o exposure with no active infection. He does have thrombocytopenic but no other LFT abnormalities and no h/o known tick exposure that would suggest rickettsial illness. No other skin findings, no heart murmur, no evidence of GI illness. Blood cultures preliminarily negative. Respiratory biofire panel negative. Echo has been negative for any vegetations Cont empiric cefepime, vanc, ampicillin given headache and fever with neck stiffness and no other source of infection. Cont empiric acyclovir. Awaiting anaplasmosis and Babesia PCR test -initially smears have been negative Chest x-ray showed possible bibasilar consolidation suggestive of pneumonia We will continue current antibiotic and de-escalation of antibiotic will be done following the results of LP (3) Weakness: Plan: plan as above. Cont supportive care. PT/OT (4) Urinary incontinence: Plan: Some incontinence overnight but no evidence of urinary retention on scheduled bladder scans. Condom catheter in place. No evidence of infection on UA. Urine does appear somewhat concentrated. Will add some IVF overnight. We will send urine culture and sensitivity (5) Thrombocytopenia: Plan: No prior records available to [facility]. No evidence of DIC, thrombocytopenia likely related to consumption in sepsis. Hold DVT chemoprophylaxis given PLT 88 today. Trend CBC. Chronic thrombocytopenia platelets 92 today (6) Ambulatory dysfunction: Plan: frequent falls, however, none since January per who is at bedside and assists with the history today. Will also hold midodrine and add back if hypotensive. Check orthostatics qshift. PT/OT (7) Dementia: Plan: chronic with delirium. Cont to reorient as needed. Good day/night cycles. (8) Vertigo: Plan: chronic, stable and no reports of vertigo at this time. Hold daily meclizine as noted above. SCDs/ambulation-chemoprophylaxis contraindicated in setting of thrombocytopenia. Full Code Dispo-cont hospitalization. was at bedside. Has had a long discussion with the regarding possible infection without any source yet or organism yet. Discussed with the in detail Admission and Anticipated Discharge Date Admission Date: April 18, 2023 Subjective 04/20/2023 The patient was seen and examined in medical telemetry unit in presence of the He has been gradually going downhill for a few months and was brought in with increasing weakness and inability to walk around and also behaving odd No fever and or chills at presentation without any elevation of the white count or tachycardia Noted to have high fever in the hospital and was started with intravenous antibiotics and other medications with continued fever in the hospital Could not do any LP today due to agitation and unsteadiness even with intravenous Ativan 04/21/2023 The patient was seen and examined in medical telemetry unit in presence of the The patient has been doing much better today has been communicating with less confusion and agreed to go for LP and MRI of the head Denies any significant symptoms Review of Systems Review of Systems: Unable to gauge review of systems secondary to delirium. Physical Exam Physical Exam: Lying in bed without any acute distress Constitutional: well developed, well nourished, + ill appearing and + obese ENMT: external ear and nose normal, oropharynx normal Respiratory: no respiratory distress Auscultation: lungs clear to auscultation bilaterally Cardiovascular: Rate/Rhythm: regular rate and regular rhythm; not tachycardic Heart Sounds: normal S1 and normal S2; no murmur Extremities: + edema (Trace edema bilaterally) Gastrointestinal (Abdomen): Inspection/Auscultation: normal bowel sounds; abdomen not distended Percussion/Palpation: abdomen soft; abdomen nontender Musculoskeletal: No acute arthritis involving any joint Neurologic: + confused Lymphatic: no cervical or axillary lymphadenopathy Results & Data Results & Data Vital Signs (Past 12 Hours) Vital Signs Temp Pulse Pulse Resp BP BP Pulse Ox 04/21/23 14:40 36.8 C 71 20 156/84 H 95 04/21/23 08:00 04/21/23 07:56 36.6 C 81 16 144/75 H 94 04/21/23 07:08 66 04/21/23 03:57 36.9 C 68 18 129/65 94 O2 Del Method O2 Flow Rate 04/21/23 14:40 Nasal Cannula 2 04/21/23 08:00 Nasal Cannula 2 04/21/23 07:56 Nasal Cannula 2 04/21/23 07:08 04/21/23 03:57 Nasal Cannula 2 Laboratory Results BMP 04/21/23 07:01 Creatinine 0.98 Medications Administered Current Inpatient Medications Acetaminophen (Acetaminophen 325 Mg Tab) 650 mg PO Q4H PRN PRN Reason: Pain or Fever Stop: 05/17/23 12:10 Last Admin: 04/19/23 18:34 Dose: 650 mg Donepezil HCl (Donepezil Hcl 5 Mg Tab) 5 mg PO QAM [facility] Stop: 05/17/23 12:10 Last Admin: 04/21/23 07:42 Dose: 5 mg Ampicillin Sodium 2,000 mg/ (Sodium Chloride) 100 mls @ 200 mls/hr IV Q4H [facility] Stop: 04/22/23 02:59 Last Infusion: 04/21/23 10:19 Dose: Infused Acyclovir Sodium 875 mg/ (Dextrose) 267.5 mls @ 250 mls/hr IV Q8H [facility] Stop: 04/28/23 10:29 Last Infusion: 04/21/23 10:20 Dose: Infused Ceftriaxone Sodium 2,000 mg/ (Dextrose) 70 mls @ 100 mls/hr IV Q12H [facility]; Protocol Stop: 04/29/23 18:59 Last Infusion: 04/21/23 06:47 Dose: Infused Dextrose/Sodium Chloride (D5w And 1/2nss) 1,000 mls @ 125 mls/hr IV .Q8H [facility] Last Infusion: 04/20/23 13:33 Dose: Infused Vancomycin HCl 1,250 mg/ (Sodium Chloride) 275 mls @ 200 mls/hr IV Q12 [facility] Stop: 04/28/23 08:59 Last Infusion: 04/21/23 09:12 Dose: Infused Ampicillin Sodium 2,000 mg/ (Sodium Chloride) 108 mls @ 200 mls/hr IV Q4H [facility] Stop: 04/27/23 16:59 Latanoprost (Latanoprost 0.005% Op Soln 2.5 Ml Btl) 1 drops OPB HS [facility] Stop: 05/17/23 20:59 Last Admin: 04/20/23 23:35 Dose: 1 drops Miscellaneous Information (Vancomycin Consult Active) 1 each N/A UD PRN PRN Reason: Consult Stop: 05/17/23 16:23 Polyethylene Glycol (Polyethylene (Miralax) 17 Gm Pack) 17 gm PO DAILY PRN PRN Reason: Constipation Stop: 05/17/23 12:10
[2023-04-21 15:34] LABS: CSF Glucose 61 mg/dl (40-70)
[2023-04-21 15:52] LABS: Appearance CSF Clear; CSF Count Tube # 3; CSF Xanthrochromic No xanthochromia; Color CSF Colorless
[2023-04-21 16:10] LABS: CSF Chemistry Tube # 1
[2023-04-21 16:21] LABS: Cryptococcus neoformans/ga PCR Not Detected (NotDetected); Cytomegalovirus PCR Not Detected (NotDetected); Enterovirus PCR Not Detected (NotDetected); Escherichia coli K1 PCR Not Detected (NotDetected); Haemophilius influenzae PCR Not Detected (NotDetected); Herpes Simplex Virus 1 PCR Not Detected (NotDetected); Herpes Simplex Virus 2 PCR Not Detected (NotDetected); Human Herpes Virus 6 PCR Not Detected (NotDetected); Human Parechovirus PCR Not Detected (NotDetected); Listeria monocytogenes PCR Not Detected (NotDetected); Neisseria meningitidis PCR Not Detected (NotDetected); Streptococcus agalactiae PCR Not Detected (NotDetected); Streptococcus pneumoniae PCR Not Detected (NotDetected); Varicella Zoster Virus PCR Not Detected (NotDetected)
--- NOTE | 2023-04-21 16:24 | Magnetic Resonance Report ---
MR brain wo/w con CLINICAL HISTORY: R/O stroke,mass TECHNIQUE: Multiplanar and multisequence MR images of the brain were obtained prior to and following administration of gadolinium contrast. Comparison: Comparison is made to CT head 04/17/2023 FINDINGS: No abnormal restricted diffusion is identified. Foci of T2 and FLAIR hyperintensity are noted in the paraventricular areas consistent with chronic small vessel ischemic disease. Ex vacuo ventriculomegal y and sulcal enlargement is noted compatible with diffuse volume loss. No mass or abnormal enhancemen t is seen. There is no mass effect or midline shift. There is no evidence of acute intraparenchymal h emorrhage. No extra axial fluid collections are seen. The corpus callosum, pituitary gland, and cereb ellar tonsils appear grossly unremarkable. Flow voids of the major intracranial arterial vessels are identified. The imaged portions of the para nasal sinuses, mastoid air cells, and orbits are unremarkable. IMPRESSION: No acute abnormality and in particular no evidence of acute infarct. ACT 112: Negative or not required by law. Electronically signed by: Wilton Huitron M.D. 04/21/2023 4:23 PM
[2023-04-21] MEDS ORDERED: ACETAMINOPHEN 1,000 MG/100 ML VIAL IV STA (16:58)
[2023-04-21] MEDS: DOXYCYCLINE HYCLATE 100 MG CAP PO SCH (21:22)
[2023-04-21] MEDS: LATANOPROST 0.005% OP SOLN 2.5 ML BTL OPB SCH (21:22)
[2023-04-22] MEDS ORDERED: AMPICILLIN 2,000 MG in 0.9 % SODIUM CHLORIDE 100 ML IV SCH (03:00)
[2023-04-22] MEDS: cefTRIAXone SODIUM 2,000 MG in DEXTROSE 5% 50 ML IV SCH ×2 (06:36→18:11)
[2023-04-22] MEDS: DONEPEZIL HCL 5 MG TAB PO SCH (07:42)
[2023-04-22] MEDS: DOXYCYCLINE HYCLATE 100 MG CAP PO SCH ×2 (07:43→21:11)
[2023-04-22 08:19] LABS: Basophils # (auto) 0.01 K/uL (0-0.2); Basophils % (auto) 0.3 %; Eosinophils # (auto) 0.26 K/uL (0-0.50); Eosinophils % (auto) 6.5 %; Hematocrit (blood only) 33.8 % (42.0-52.0); Hemoglobin 11.7 g/dl (14.0-18.0); Immature Granulocytes # (auto) 0.03 K/uL (0.01-0.20); Immature Granulocytes % (auto) 0.8 %; Lymphocytes # (auto) 0.39 K/uL (1.2-3.4); Lymphocytes % (auto) 9.8 %; Mean Corpuscular Hemoglobin 31.3 pg (25.0-34.0); Mean Corpuscular Hgb Conc 34.6 g/dL (32.0-36.0); Mean Corpuscular Volume 90.4 fL (80.0-100.0); Mean Platelet Volume 10.5 fL (9.4-12.4); Monocytes # (auto) 0.29 K/uL (0.11-0.59); Monocytes % (auto) 7.3 %; Neutrophils % (auto) 75.3 %; Platelet Count 114 K/uL (130-400); RDW Coefficient of Variation 11.9 % (11.5-14.5); RDW Standard Deviation 39.3 fL (36.4-46.3); Red Blood Count 3.74 M/uL (4.70-6.10); White Blood Count 3.98 K/ul (4.8-10.8)
[2023-04-22 08:28] LABS: BUN Creatinine Ratio 14.3 (10-20); Calcium 7.8 mg/dl (8.6-10.3); Creatinine Clr Calc Pharmacy 64.1 ml/min; Est GFR (African American) 81.2 ml/min; Potassium 3.4 mmol/L (3.5-5.1)
[2023-04-22] MEDS ORDERED: POTASSIUM CHLORIDE CRTAB 20 MEQ TABCR PO STA (08:41)
--- NOTE | 2023-04-22 12:30 | Hospitalist Progress Note ---
Date of Service April 22, 2023 Assessment & Plan (1) Sepsis: Plan: Admitted with gradual going downhill for a few months and was brought in with increasing weakness and inability to walk around and also behaving odd No evidence of sepsis on presentation but subsequently clinical pictures were sent with fever, delirium and malaise with increasing inflammatory/infection marker Leukopenia now present. Developed fever on second time even with antibiotic and additional antibiotics with started including intravenous acyclovir for possible meningitis Lactate yesterday was negative. Possible viral infection and so far blood cultures and urine examination have been negative Difficult to do complete neurological examination Appreciate ID recommendation for LP which is a scheduled this morning but failed due to unsteady patient and risk of the procedure Added PCR check for anaplasma and babesia-PCR's pending. Discussed with the in detail today and the patient remains afebrile for the last more than 24 hours Will send urine for culture and repeat blood cultures are pending Will get MRI of the head with and without contrast to rule out any acute events in the brain Lumbar puncture fluid assessment remain negative so far-awaiting Lyme DNA and We st Nile virus testing Antibiotics have been de-escalated to IV ceftriaxone and oral doxycycline and acyclovir has been discontinued Patient remained stable and has minimal confusion Increasing delirium with history of dementia is frustrated with the symptoms and which are not being improving She wanted to have the patient transferred to a dementia unit in [facility] Reassured that nothing more can be done for this and she wanted to have a neuro evaluation Appreciate neurology input and recommendation Advised to have LP done and MRI as a scheduled before-as above We will get PT and OT evaluation (2) Fever: Plan: Unclear etiology-urine clear, CXR and later CT chest without evidence of pneumonia, meningitis considered but LP patient and family declined LP, Lyme reveals a h/o exposure with no active infection. He does have thrombocytopenic but no other LFT abnormalities and no h/o known tick exposure that would suggest rickettsial illness. No other skin findings, no heart murmur, no evidence of GI illness. Blood cultures preliminarily negative. Respiratory biofire panel negative. Echo has been negative for any vegetations Cont empiric cefepime, vanc, ampicillin given headache and fever with neck stiffness and no other source of infection. Cont empiric acyclovir. Awaiting anaplasmosis and Babesia PCR test -initially smears have been negative Chest x-ray showed possible bibasilar consolidation suggestive of pneumonia We will continue current antibiotic and de-escalation of antibiotic will be done following the results of LP No more fever and or chills and white count remains normal further towards lower side Urine culture has been negative (3) Weakness: Plan: plan as above. Cont supportive care. PT/OT (4) Urinary incontinence: Plan: Some incontinence overnight but no evidence of urinary retention on scheduled bladder scans. Condom catheter in place. No evidence of infection on UA. Urine does appear somewhat concentrated. Will add some IVF overnight. We will send urine culture and sensitivity (5) Thrombocytopenia: Plan: No prior records available to [facility]. No evidence of DIC, thrombocytopenia likely related to consumption in sepsis. Hold DVT chemoprophylaxis given PLT 88 today. Trend CBC. Chronic thrombocytopenia platelets 92 today (6) Ambulatory dysfunction: Plan: frequent falls, however, none since January per who is at bedside and assists with the history today. Will also hold midodrine and add back if hypotensive. Check orthostatics qshift. PT/OT (7) Dementia: Plan: chronic with delirium. Cont to reorient as needed. Good day/night cycles. (8) Vertigo: Plan: chronic, stable and no reports of vertigo at this time. Hold daily meclizine as noted above. SCDs/ambulation-chemoprophylaxis contraindicated in setting of thrombocytopenia. Full Code Dispo-cont hospitalization. was at bedside. Has had a long discussion with the regarding possible infection without any source yet or organism yet. Discussed with the in detail Likely discharge in a day or 2 Admission and Anticipated Discharge Date Admission Date: April 18, 2023 Subjective 04/20/2023 The patient was seen and examined in medical telemetry unit in presence of the He has been gradually going downhill for a few months and was brought in with increasing weakness and inability to walk around and also behaving odd No fever and or chills at presentation without any elevation of the white count or tachycardia Noted to have high fever in the hospital and was started with intravenous antibiotics and other medications with continued fever in the hospital Could not do any LP today due to agitation and unsteadiness even with intravenous Ativan 04/21/2023 The patient was seen and examined in medical telemetry unit in presence of the The patient has been doing much better today has been communicating with less confusion and agreed to go for LP and MRI of the head Denies any significant symptoms 04/22/2023 The patient was seen and examined in medical telemetry unit in presence of the He is a status post negative LP so far and negative MRI Seems to be at his baseline though has extreme weakness We will get PT and OT evaluation Review of Systems Review of Systems: Unobtainable due to cognitive status Physical Exam Physical Exam: Lying in bed without any acute distress but remains very weak and lethargic Constitutional: well developed, well nourished, + ill appearing and + obese ENMT: external ear and nose normal, oropharynx normal Respiratory: no respiratory distress Auscultation: lungs clear to auscultation bilaterally Cardiovascular: Rate/Rhythm: regular rate and regular rhythm; not tachycardic Heart Sounds: normal S1 and normal S2; no murmur Extremities: + edema (Trace edema bilaterally) Gastrointestinal (Abdomen): Inspection/Auscultation: normal bowel sounds; abdomen not distended Percussion/Palpation: abdomen soft; abdomen nontender Musculoskeletal: No acute arthritis involving any joint Neurologic: + confused Pleasantly confused without any psychosis Lymphatic: no cervical or axillary lymphadenopathy Results & Data Results & Data Vital Signs (Past 12 Hours) Vital Signs Temp Pulse Pulse Resp BP Pulse Ox O2 Del Method 04/22/23 10:07 94 Room Air 04/22/23 07:30 Nasal Cannula 04/22/23 07:00 70 04/22/23 07:19 36.8 C 74 19 136/71 92 Nasal Cannula 04/22/23 06:00 Nasal Cannula 04/22/23 03:40 36.9 C 82 18 147/71 H 92 Room Air O2 Flow Rate 04/22/23 10:07 04/22/23 07:30 2 04/22/23 07:00 04/22/23 07:19 2 04/22/23 06:00 2 04/22/23 03:40 Laboratory Results Short CBC 04/22/23 Range/Units 07:23 WBC 3.98 L (4.8-10.8) K/ul Hgb 11.7 L (14.0-18.0) g/dl Hct 33.8 L (42.0-52.0) % Plt Count 114 L (130-400) K/uL BMP 04/22/23 07:23 Sodium 139 Potassium 3.4 L Chloride 105 Carbon Dioxide 27 BUN 14 Creatinine 0.98 Glucose 110 H Calcium 7.8 L Medications Administered Current Inpatient Medications Acetaminophen (Acetaminophen 325 Mg Tab) 650 mg PO Q4H PRN PRN Reason: Pain or Fever Stop: 05/17/23 12:10 Last Admin: 04/19/23 18:34 Dose: 650 mg Donepezil HCl (Donepezil Hcl 5 Mg Tab) 5 mg PO QAM [facility] Stop: 05/17/23 12:10 Last Admin: 04/22/23 07:42 Dose: 5 mg Doxycycline Hyclate (Doxycycline Hyclate 100 Mg Cap) 100 mg PO BID [facility] Stop: 04/28/23 20:59 Last Admin: 04/22/23 07:43 Dose: 100 mg Ceftriaxone Sodium 2,000 mg/ (Dextrose) 70 mls @ 100 mls/hr IV Q12H [facility]; Protocol Stop: 04/29/23 18:59 Last Infusion: 04/22/23 07:40 Dose: Infused Dextrose/Sodium Chloride (D5w And 1/2nss) 1,000 mls @ 125 mls/hr IV .Q8H [facility] Last Infusion: 04/20/23 13:33 Dose: Infused Latanoprost (Latanoprost 0.005% Op Soln 2.5 Ml Btl) 1 drops OPB HS [facility] Stop: 05/17/23 20:59 Last Admin: 04/21/23 21:22 Dose: 1 drops Polyethylene Glycol (Polyethylene (Miralax) 17 Gm Pack) 17 gm PO DAILY PRN PRN Reason: Constipation Stop: 05/17/23 12:10
[2023-04-22] MEDS: ACETAMINOPHEN 325 MG TAB PO PRN ×2 (12:40→23:17)
[2023-04-22] MEDS ORDERED: ALBUTEROL 0.083% NEBU SOLN 3 ML VIAL NEB STA (13:56)
[2023-04-22] MEDS ORDERED: ALBUTEROL 0.083% NEBU SOLN 3 ML VIAL ONE (16:32)
[2023-04-22] MEDS: LATANOPROST 0.005% OP SOLN 2.5 ML BTL OPB SCH (21:11)
[2023-04-23] MEDS ORDERED: ALBUT/IPRATROP 3MG/0.5MG NEB 3 ML VIAL NEB PRN (01:49)
[2023-04-23] MEDS ORDERED: ALBUT/IPRATROP 3MG/0.5MG NEB 3 ML VIAL NEB STA (01:49)
[2023-04-23 07:14] LABS: BUN Creatinine Ratio 18.2 (10-20); Calcium 7.9 mg/dl (8.6-10.3); Creatinine Clr Calc Pharmacy 63.4 ml/min; Est GFR (African American) 80.2 ml/min; Est GFR (Non-African American) 69.2 ml/min; Potassium 3.4 mmol/L (3.5-5.1)
[2023-04-23 07:28] LABS: Basophils # (auto) 0.01 K/uL (0-0.2); Basophils % (auto) 0.2 %; Eosinophils # (auto) 0.29 K/uL (0-0.50); Eosinophils % (auto) 6.7 %; Hematocrit (blood only) 33.2 % (42.0-52.0); Hemoglobin 11.7 g/dl (14.0-18.0); Immature Granulocytes # (auto) 0.02 K/uL (0.01-0.20); Immature Granulocytes % (auto) 0.5 %; Lymphocytes # (auto) 0.62 K/uL (1.2-3.4); Lymphocytes % (auto) 14.3 %; Mean Corpuscular Hemoglobin 31.6 pg (25.0-34.0); Mean Corpuscular Hgb Conc 35.2 g/dL (32.0-36.0); Mean Corpuscular Volume 89.7 fL (80.0-100.0); Mean Platelet Volume 10.9 fL (9.4-12.4); Monocytes # (auto) 0.37 K/uL (0.11-0.59); Monocytes % (auto) 8.5 %; Neutrophils # (auto) 3.03 K/uL (1.40-6.50); Neutrophils % (auto) 69.8 %; Platelet Count 139 K/uL (130-400); RDW Coefficient of Variation 11.9 % (11.5-14.5); RDW Standard Deviation 38.7 fL (36.4-46.3); White Blood Count 4.34 K/ul (4.8-10.8)
[2023-04-23] MEDS ORDERED: POTASSIUM CHLORIDE CRTAB 20 MEQ TABCR PO STA (07:50)
[2023-04-23] MEDS: cefTRIAXone SODIUM 2,000 MG in DEXTROSE 5% 50 ML IV SCH ×2 (07:58→18:36)
[2023-04-23] MEDS: DOXYCYCLINE HYCLATE 100 MG CAP PO SCH ×2 (08:48→22:30)
[2023-04-23] MEDS: DONEPEZIL HCL 5 MG TAB PO SCH (08:48)
--- NOTE | 2023-04-23 12:47 | Hospitalist Progress Note ---
Date of Service April 23, 2023 Assessment & Plan (1) Sepsis: Plan: Admitted with gradual going downhill for a few months and was brought in with increasing weakness and inability to walk around and also behaving odd No evidence of sepsis on presentation but subsequently clinical pictures were sent with fever, delirium and malaise with increasing inflammatory/infection marker Leukopenia now present. Developed fever on second time even with antibiotic and additional antibiotics with started including intravenous acyclovir for possible meningitis Lactate yesterday was negative. Possible viral infection and so far blood cultures and urine examination have been negative Difficult to do complete neurological examination Appreciate ID recommendation for LP which is a scheduled this morning but failed due to unsteady patient and risk of the procedure Added PCR check for anaplasma and babesia-PCR's pending. Discussed with the in detail today and the patient remains afebrile for the last more than 24 hours Will send urine for culture and repeat blood cultures are pending Will get MRI of the head with and without contrast to rule out any acute events in the brain Lumbar puncture fluid assessment remain negative so far-awaiting Lyme DNA and We st Nile virus testing Antibiotics have been de-escalated to IV ceftriaxone and oral doxycycline and acyclovir has been discontinued Patient remained stable and has minimal confusion Clinically much better and plan to discharge on Tuesday Increasing delirium with history of dementia is frustrated with the symptoms and which are not being improving She wanted to have the patient transferred to a dementia unit in [facility] Reassured that nothing more can be done for this and she wanted to have a neuro evaluation Appreciate neurology input and recommendation Advised to have LP done and MRI as a scheduled before-as above We will get PT and OT evaluation-recommended rehab (2) Fever: Plan: Unclear etiology-urine clear, CXR and later CT chest without evidence of pneumonia, meningitis considered but LP patient and family declined LP, Lyme reveals a h/o exposure with no active infection. He does have thrombocytopenic but no other LFT abnormalities and no h/o known tick exposure that would suggest rickettsial illness. No other skin findings, no heart murmur, no evidence of GI illness. Blood cultures preliminarily negative. Respiratory biofire panel negative. Echo has been negative for any vegetations Cont empiric cefepime, vanc, ampicillin given headache and fever with neck stiffness and no other source of infection. Cont empiric acyclovir. Awaiting anaplasmosis and Babesia PCR test -initially smears have been negative Chest x-ray showed possible bibasilar consolidation suggestive of pneumonia We will continue current antibiotic and de-escalation of antibiotic will be done following the results of LP No more fever and or chills and white count remains normal further towards lower side Urine culture has been negative (3) Weakness: Plan: plan as above. Cont supportive care. PT/OT (4) Urinary incontinence: Plan: Some incontinence overnight but no evidence of urinary retention on scheduled bladder scans. Condom catheter in place. No evidence of infection on UA. Urine does appear somewhat concentrated. Will add some IVF overnight. We will send urine culture and sensitivity (5) Thrombocytopenia: Plan: No prior records available to [facility]. No evidence of DIC, thrombocytopenia likely related to consumption in sepsis. Hold DVT chemoprophylaxis given PLT 88 today. Trend CBC. Chronic thrombocytopenia platelets 92 today (6) Ambulatory dysfunction: Plan: frequent falls, however, none since January per who is at bedside and assists with the history today. Will also hold midodrine and add back if hypotensive. Check orthostatics qshift. PT/OT (7) Dementia: Plan: chronic with delirium. Cont to reorient as needed. Good day/night cycles. (8) Vertigo: Plan: chronic, stable and no reports of vertigo at this time. Hold daily meclizine as noted above. SCDs/ambulation-chemoprophylaxis contraindicated in setting of thrombocytopenia. Full Code Dispo-cont hospitalization. was at bedside. Has had a long discussion with the regarding possible infection without any source yet or organism yet. Discussed with the in detail Likely discharge in a day or 2 Discussed with the in detail Admission and Anticipated Discharge Date Admission Date: April 18, 2023 Subjective 04/20/2023 The patient was seen and examined in medical telemetry unit in presence of the He has been gradually going downhill for a few months and was brought in with increasing weakness and inability to walk around and also behaving odd No fever and or chills at presentation without any elevation of the white count or tachycardia Noted to have high fever in the hospital and was started with intravenous antibiotics and other medications with continued fever in the hospital Could not do any LP today due to agitation and unsteadiness even with intravenous Ativan 04/21/2023 The patient was seen and examined in medical telemetry unit in presence of the The patient has been doing much better today has been communicating with less confusion and agreed to go for LP and MRI of the head Denies any significant symptoms 04/22/2023 The patient was seen and examined in medical telemetry unit in presence of the He is a status post negative LP so far and negative MRI Seems to be at his baseline though has extreme weakness We will get PT and OT evaluation 04/23/2023 The patient was seen and examined in medical telemetry unit He has been much better today Out of bed on a chair eating breakfast Pleasantly confused but otherwise conversing normally Review of Systems Review of Systems: Unable to gauge review of systems secondary to delirium. Physical Exam Physical Exam: Lying in bed without any acute distress but remains very weak and lethargic Constitutional: well developed, well nourished, + ill appearing and + obese ENMT: external ear and nose normal, oropharynx normal Respiratory: no respiratory distress Auscultation: lungs clear to auscultation bilaterally Cardiovascular: Rate/Rhythm: regular rate and regular rhythm; not tachycardic Heart Sounds: normal S1 and normal S2; no murmur Extremities: + edema (Trace edema bilaterally) Gastrointestinal (Abdomen): Inspection/Auscultation: normal bowel sounds; abdomen not distended Percussion/Palpation: abdomen soft; abdomen nontender Musculoskeletal: No acute arthritis involving any of the joint Neurologic: + confused (Pleasantly confused) Lymphatic: no cervical or axillary lymphadenopathy Results & Data Results & Data Vital Signs (Past 12 Hours) Vital Signs Temp Pulse Resp BP Pulse Ox O2 Del Method 04/23/23 11:49 62 16 126/68 94 Room Air 04/23/23 11:26 36.9 C 71 20 98/63 L 91 Room Air 04/23/23 10:58 Room Air 04/23/23 08:42 36.8 C 64 20 143/77 H 94 Room Air 04/23/23 03:10 36.5 C 91 H 16 151/75 H 95 Room Air 04/23/23 02:34 57 L 14 95 Room Air Laboratory Results Short CBC 04/23/23 Range/Units 06:32 WBC 4.34 L (4.8-10.8) K/ul Hgb 11.7 L (14.0-18.0) g/dl Hct 33.2 L (42.0-52.0) % Plt Count 139 (130-400) K/uL BMP 04/23/23 06:32 Sodium 139 Potassium 3.4 L Chloride 106 Carbon Dioxide 27 BUN 18 Creatinine 0.99 Glucose 105 H Calcium 7.9 L Medications Administered Current Inpatient Medications Acetaminophen (Acetaminophen 325 Mg Tab) 650 mg PO Q4H PRN PRN Reason: Pain or Fever Stop: 05/17/23 12:10 Last Admin: 04/22/23 23:17 Dose: 650 mg Albuterol (Albut/Ipratrop 3mg/0.5mg Neb 3 Ml Vial) 3 ml NEB Q4R PRN; Protocol PRN Reason: Shortness Of Breath Or Wheezing Stop: 05/23/23 02:59 Donepezil HCl (Donepezil Hcl 5 Mg Tab) 5 mg PO QAM [facility] Stop: 05/17/23 12:10 Last Admin: 04/23/23 08:48 Dose: 5 mg Doxycycline Hyclate (Doxycycline Hyclate 100 Mg Cap) 100 mg PO BID [facility] Stop: 04/28/23 20:59 Last Admin: 04/23/23 08:48 Dose: 100 mg Ceftriaxone Sodium 2,000 mg/ (Dextrose) 70 mls @ 100 mls/hr IV Q12H [facility]; Protocol Stop: 04/29/23 18:59 Last Infusion: 04/23/23 08:44 Dose: Infused Dextrose/Sodium Chloride (D5w And 1/2nss) 1,000 mls @ 125 mls/hr IV .Q8H [facility] Last Infusion: 04/20/23 13:33 Dose: Infused Latanoprost (Latanoprost 0.005% Op Soln 2.5 Ml Btl) 1 drops OPB HS [facility] Stop: 05/17/23 20:59 Last Admin: 04/22/23 21:11 Dose: 1 drops Polyethylene Glycol (Polyethylene (Miralax) 17 Gm Pack) 17 gm PO DAILY PRN PRN Reason: Constipation Stop: 05/17/23 12:10
[2023-04-23 14:32] LABS: Babesia microti DNA Not Detected (Not Detected)
[2023-04-23] MEDS: ACETAMINOPHEN 325 MG TAB PO PRN (15:52)
[2023-04-23] MEDS ORDERED: KETOROLAC TROMETHAMINE 15 MG/ML VIAL IV ONE (20:02)
[2023-04-23] MEDS: LATANOPROST 0.005% OP SOLN 2.5 ML BTL OPB SCH (22:30)
[2023-04-24] MEDS: KETOROLAC TROMETHAMINE 15 MG/ML VIAL IV ONE ×2 (05:20→05:42)
[2023-04-24] MEDS ORDERED: IBUPROFEN 200 MG TAB PO STA (05:33)
[2023-04-24] MEDS: cefTRIAXone SODIUM 2,000 MG in DEXTROSE 5% 50 ML IV SCH (08:09)
[2023-04-24] MEDS: DONEPEZIL HCL 5 MG TAB PO SCH (08:39)
[2023-04-24] MEDS: DOXYCYCLINE HYCLATE 100 MG CAP PO SCH ×2 (08:39→21:56)
[2023-04-24] MEDS: ACETAMINOPHEN 325 MG TAB PO PRN ×2 (08:40→22:00)
[2023-04-24] MEDS: cefUROXime axetil 500 MG TAB PO SCH ×2 (08:58→21:56)
--- NOTE | 2023-04-24 14:01 | Hospitalist Progress Note ---
Date of Service April 24, 2023 Assessment & Plan (1) Sepsis: Plan: Admitted with gradual going downhill for a few months and was brought in with increasing weakness and inability to walk around and also behaving odd No evidence of sepsis on presentation but subsequently clinical pictures were sent with fever, delirium and malaise with increasing inflammatory/infection marker Leukopenia now present. Developed fever on second time even with antibiotic and additional antibiotics with started including intravenous acyclovir for possible meningitis Lactate yesterday was negative. Possible viral infection and so far blood cultures and urine examination have been negative Difficult to do complete neurological examination Appreciate ID recommendation for LP which is a scheduled this morning but failed due to unsteady patient and risk of the procedure Added PCR check for anaplasma and babesia-PCR's pending. Discussed with the in detail today and the patient remains afebrile for the last more than 24 hours Will send urine for culture and repeat blood cultures are pending Will get MRI of the head with and without contrast to rule out any acute events in the brain Lumbar puncture fluid assessment remain negative so far-awaiting Lyme DNA and We st Nile virus testing Antibiotics have been de-escalated to IV ceftriaxone and oral doxycycline and acyclovir has been discontinued Patient remained stable and has minimal confusion Clinically much better and plan to discharge on Tuesday Has been on oral Ceftin and doxycycline which will be continued for a total of 10 days Increasing delirium with history of dementia is frustrated with the symptoms and which are not being improving She wanted to have the patient transferred to a dementia unit in [facility] Reassured that nothing more can be done for this and she wanted to have a neuro evaluation Appreciate neurology input and recommendation Advised to have LP done and MRI as a scheduled before-as above We will get PT and OT evaluation-recommended rehab Dementia seems to be at his baseline-likely be transferred to rehab tomorrow (2) Fever: Plan: Unclear etiology-urine clear, CXR and later CT chest without evidence of pneumonia, meningitis considered but LP patient and family declined LP, Lyme reveals a h/o exposure with no active infection. He does have thrombocytopenic but no other LFT abnormalities and no h/o known tick exposure that would suggest rickettsial illness. No other skin findings, no heart murmur, no evidence of GI illness. Blood cultures preliminarily negative. Respiratory biofire panel negative. Echo has been negative for any vegetations Cont empiric cefepime, vanc, ampicillin given headache and fever with neck stiffness and no other source of infection. Cont empiric acyclovir. Awaiting anaplasmosis and Babesia PCR test -initially smears have been negative Chest x-ray showed possible bibasilar consolidation suggestive of pneumonia We will continue current antibiotic and de-escalation of antibiotic will be done following the results of LP No more fever and or chills and white count remains normal further towards lower side Urine culture has been negative (3) Weakness: Plan: plan as above. Cont supportive care. PT/OT (4) Urinary incontinence: Plan: Some incontinence overnight but no evidence of urinary retention on scheduled bladder scans. Condom catheter in place. No evidence of infection on UA. Urine does appear somewhat concentrated. Will add some IVF overnight. We will send urine culture and sensitivity (5) Thrombocytopenia: Plan: No prior records available to [facility]. No evidence of DIC, thrombocytopenia likely related to consumption in sepsis. Hold DVT chemoprophylaxis given PLT 88 today. Trend CBC. Chronic thrombocytopenia platelets 92 today (6) Ambulatory dysfunction: Plan: frequent falls, however, none since January per who is at bedside and assists with the history today. Will also hold midodrine and add back if hypotensive. Check orthostatics qshift. PT/OT (7) Dementia: Plan: chronic with delirium. Cont to reorient as needed. Good day/night cycles. (8) Vertigo: Plan: chronic, stable and no reports of vertigo at this time. Hold daily meclizine as noted above. SCDs/ambulation-chemoprophylaxis contraindicated in setting of thrombocytopenia. Full Code Dispo-cont hospitalization. was at bedside. Has had a long discussion with the regarding possible infection without any source yet or organism yet. Discussed with the in detail Likely discharge in a day or 2 Discussed with the in detail Admission and Anticipated Discharge Date Admission Date: April 18, 2023 Subjective 04/20/2023 The patient was seen and examined in medical telemetry unit in presence of the He has been gradually going downhill for a few months and was brought in with increasing weakness and inability to walk around and also behaving odd No fever and or chills at presentation without any elevation of the white count or tachycardia Noted to have high fever in the hospital and was started with intravenous antibiotics and other medications with continued fever in the hospital Could not do any LP today due to agitation and unsteadiness even with intravenous Ativan 04/21/2023 The patient was seen and examined in medical telemetry unit in presence of the The patient has been doing much better today has been communicating with less confusion and agreed to go for LP and MRI of the head Denies any significant symptoms 04/22/2023 The patient was seen and examined in medical telemetry unit in presence of the He is a status post negative LP so far and negative MRI Seems to be at his baseline though has extreme weakness We will get PT and OT evaluation 04/23/2023 The patient was seen and examined in medical telemetry unit He has been much better today Out of bed on a chair eating breakfast Pleasantly confused but otherwise conversing normally 04/24/2023 The patient was seen and examined in medical telemetry unit in presence of the He has been back to his baseline Minimal headache in the morning may be secondary to recent LP Denies any other symptoms Review of Systems Review of Systems: Unable to gauge review of systems secondary to delirium. Physical Exam Physical Exam: Lying in bed without any acute distress but remains very weak and lethargic Constitutional: well developed, well nourished and + obese; not ill appearing ENMT: external ear and nose normal, oropharynx normal Respiratory: no respiratory distress Auscultation: lungs clear to auscultation bilaterally Cardiovascular: Rate/Rhythm: regular rate and regular rhythm; not tachycardic Heart Sounds: normal S1 and normal S2; no murmur Extremities: + edema (Trace edema bilaterally) Gastrointestinal (Abdomen): Inspection/Auscultation: normal bowel sounds; abdomen not distended Percussion/Palpation: abdomen soft; abdomen nontender Musculoskeletal: No acute arthritis involving any joint Neurologic: + confused (Pleasantly confused) Lymphatic: no cervical or axillary lymphadenopathy Results & Data Results & Data Vital Signs (Past 12 Hours) Vital Signs Temp Pulse Pulse Resp BP Pulse Ox O2 Del Method 04/24/23 10:52 36.7 C 62 17 120/66 94 Room Air 04/24/23 11:09 Room Air 04/24/23 07:38 36.6 C 74 20 138/78 93 Room Air 04/24/23 07:00 94 H 04/24/23 03:20 36.8 C 54 L 20 136/74 96 Room Air Medications Administered Current Inpatient Medications Acetaminophen (Acetaminophen 325 Mg Tab) 650 mg PO Q4H PRN PRN Reason: Pain or Fever Stop: 05/17/23 12:10 Last Admin: 04/24/23 08:40 Dose: 650 mg Albuterol (Albut/Ipratrop 3mg/0.5mg Neb 3 Ml Vial) 3 ml NEB Q4R PRN; Protocol PRN Reason: Shortness Of Breath Or Wheezing Stop: 05/23/23 02:59 Cefuroxime Axetil (Cefuroxime Axetil 500 Mg Tab) 500 mg PO BID [facility] Stop: 05/01/23 08:59 Last Admin: 04/24/23 08:58 Dose: 500 mg Donepezil HCl (Donepezil Hcl 5 Mg Tab) 5 mg PO QAM [facility] Stop: 05/17/23 12:10 Last Admin: 04/24/23 08:39 Dose: 5 mg Doxycycline Hyclate (Doxycycline Hyclate 100 Mg Cap) 100 mg PO BID [facility] Stop: 04/28/23 20:59 Last Admin: 04/24/23 08:39 Dose: 100 mg Dextrose/Sodium Chloride (D5w And 1/2nss) 1,000 mls @ 125 mls/hr IV .Q8H [facility] Last Infusion: 04/20/23 13:33 Dose: Infused Latanoprost (Latanoprost 0.005% Op Soln 2.5 Ml Btl) 1 drops OPB HS [facility] Stop: 05/17/23 20:59 Last Admin: 04/23/23 22:30 Dose: 1 drops Polyethylene Glycol (Polyethylene (Miralax) 17 Gm Pack) 17 gm PO DAILY PRN PRN Reason: Constipation Stop: 05/17/23 12:10
[2023-04-24] MEDS: LATANOPROST 0.005% OP SOLN 2.5 ML BTL OPB SCH (21:56)
[2023-04-25] MEDS: ACETAMINOPHEN 325 MG TAB PO PRN ×2 (05:54→09:16)
[2023-04-25 07:57] LABS: Hematocrit (blood only) 33.3 % (42.0-52.0); Hemoglobin 11.6 g/dl (14.0-18.0); Mean Corpuscular Hgb Conc 34.8 g/dL (32.0-36.0); Mean Platelet Volume 9.9 fL (9.4-12.4); Platelet Count 203 K/uL (130-400); RDW Coefficient of Variation 11.8 % (11.5-14.5); RDW Standard Deviation 37.7 fL (36.4-46.3); Red Blood Count 3.74 M/uL (4.70-6.10); White Blood Count 4.07 K/ul (4.8-10.8)
[2023-04-25 08:22] LABS: BUN Creatinine Ratio 17.2 (10-20); Calcium 8.1 mg/dl (8.6-10.3); Creatinine Clr Calc Pharmacy 72.2 ml/min; Est GFR (African American) 91.2 ml/min; Est GFR (Non-African American) 78.7 ml/min; Potassium 3.8 mmol/L (3.5-5.1)
[2023-04-25 08:29] LABS: Basophils # (auto) 0.01 K/uL (0-0.2); Basophils % (auto) 0.2 %; Eosinophils # (auto) 0.32 K/uL (0-0.50); Eosinophils % (auto) 7.9 %; Immature Granulocytes # (auto) 0.03 K/uL (0.01-0.20); Immature Granulocytes % (auto) 0.7 %; Lymphocytes # (auto) 0.81 K/uL (1.2-3.4); Lymphocytes % (auto) 19.9 %; Monocytes # (auto) 0.33 K/uL (0.11-0.59); Monocytes % (auto) 8.1 %; Neutrophils # (auto) 2.57 K/uL (1.40-6.50); Neutrophils % (auto) 63.2 %
[2023-04-25] MEDS: DOXYCYCLINE HYCLATE 100 MG CAP PO SCH ×2 (09:09→20:02)
[2023-04-25] MEDS: cefUROXime axetil 500 MG TAB PO SCH ×2 (09:09→20:05)
[2023-04-25] MEDS: DONEPEZIL HCL 5 MG TAB PO SCH (09:09)
--- NOTE | 2023-04-25 12:53 | Hospitalist Progress Note ---
Date of Service April 25, 2023 Assessment & Plan (1) Sepsis: Plan: Admitted with gradual going downhill for a few months and was brought in with increasing weakness and inability to walk around and also behaving odd No evidence of sepsis on presentation but subsequently clinical pictures were sent with fever, delirium and malaise with increasing inflammatory/infection marker Leukopenia now present. Developed fever on second time even with antibiotic and additional antibiotics with started including intravenous acyclovir for possible meningitis Lactate yesterday was negative. Possible viral infection and so far blood cultures and urine examination have been negative Difficult to do complete neurological examination Appreciate ID recommendation for LP which is a scheduled this morning but failed due to unsteady patient and risk of the procedure Added PCR check for anaplasma and babesia-PCR's pending. Discussed with the in detail today and the patient remains afebrile for the last more than 24 hours Will send urine for culture and repeat blood cultures are pending Will get MRI of the head with and without contrast to rule out any acute events in the brain Lumbar puncture fluid assessment remain negative so far-awaiting Lyme DNA and We st Nile virus testing Antibiotics have been de-escalated to IV ceftriaxone and oral doxycycline and acyclovir has been discontinued Patient remained stable and has minimal confusion Clinically much better and plan to discharge on Tuesday Has been on oral Ceftin and doxycycline which will be continued for a total of 10 days Remains clinically stable to be discharged lodging 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 and family will transport him to [place] tomorrow Increasing delirium with history of dementia is frustrated with the symptoms and which are not being improving She wanted to have the patient transferred to a dementia unit in [facility] Reassured that nothing more can be done for this and she wanted to have a neuro evaluation Appreciate neurology input and recommendation Advised to have LP done and MRI as a scheduled before-as above We will get PT and OT evaluation-recommended rehab Dementia seems to be at his baseline-likely be transferred to rehab tomorrow Back to his baseline (2) Fever: Plan: Unclear etiology-urine clear, CXR and later CT chest without evidence of pneumonia, meningitis considered but LP patient and family declined LP, Lyme reveals a h/o exposure with no active infection. He does have thrombocytopenic but no other LFT abnormalities and no h/o known tick exposure that would suggest rickettsial illness. No other skin findings, no heart murmur, no evidence of GI illness. Blood cultures preliminarily negative. Respiratory biofire panel negative. Echo has been negative for any vegetations Cont empiric cefepime, vanc, ampicillin given headache and fever with neck stiffness and no other source of infection. Cont empiric acyclovir. Awaiting anaplasmosis and Babesia PCR test -initially smears have been negative Chest x-ray showed possible bibasilar consolidation suggestive of pneumonia We will continue current antibiotic and de-escalation of antibiotic will be done following the results of LP No more fever and or chills and white count remains normal further towards lower side Urine culture has been negative No more fever and or chills and no signs and/or symptoms of infection (3) Weakness: Plan: plan as above. Cont supportive care. PT/OT (4) Urinary incontinence: Plan: Some incontinence overnight but no evidence of urinary retention on scheduled bladder scans. Condom catheter in place. No evidence of infection on UA. Urine does appear somewhat concentrated. Will add some IVF overnight. We will send urine culture and sensitivity (5) Thrombocytopenia: Plan: No prior records available to [facility]. No evidence of DIC, thrombocytopenia likely related to consumption in sepsis. Hold DVT chemoprophylaxis given PLT 88 today. Trend CBC. Chronic thrombocytopenia platelets 92 today Platelet is 203 today (6) Ambulatory dysfunction: Plan: frequent falls, however, none since January per who is at bedside and assists with the history today. Will also hold midodrine and add back if hypotensive. Check orthostatics qshift. PT/OT (7) Dementia: Plan: chronic with delirium. Cont to reorient as needed. Good day/night cycles. (8) Vertigo: Plan: chronic, stable and no reports of vertigo at this time. Hold daily meclizine as noted above. SCDs/ambulation-chemoprophylaxis contraindicated in setting of thrombocytopenia. Full Code Dispo-cont hospitalization. was at bedside. Has had a long discussion with the regarding possible infection without any source yet or organism yet. Discussed with the in detail Likely discharge in a day or 2 Discussed with the in detail Admission and Anticipated Discharge Date Admission Date: April 18, 2023 Subjective 04/20/2023 The patient was seen and examined in medical telemetry unit in presence of the He has been gradually going downhill for a few months and was brought in with increasing weakness and inability to walk around and also behaving odd No fever and or chills at presentation without any elevation of the white count or tachycardia Noted to have high fever in the hospital and was started with intravenous antibiotics and other medications with continued fever in the hospital Could not do any LP today due to agitation and unsteadiness even with intravenous Ativan 04/21/2023 The patient was seen and examined in medical telemetry unit in presence of the The patient has been doing much better today has been communicating with less confusion and agreed to go for LP and MRI of the head Denies any significant symptoms 04/22/2023 The patient was seen and examined in medical telemetry unit in presence of the He is a status post negative LP so far and negative MRI Seems to be at his baseline though has extreme weakness We will get PT and OT evaluation 04/23/2023 The patient was seen and examined in medical telemetry unit He has been much better today Out of bed on a chair eating breakfast Pleasantly confused but otherwise conversing normally 04/24/2023 The patient was seen and examined in medical telemetry unit in presence of the He has been back to his baseline Minimal headache in the morning may be secondary to recent LP Denies any other symptoms 04/25/2023 The patient was seen and examined in medical telemetry unit in presence of the He has been stable and complains minimal headache without any other symptoms He will be going tomorrow Review of Systems Review of Systems: Unable to gauge review of systems secondary to delirium. Physical Exam Physical Exam: Lying in bed without any acute distress but remains very weak and lethargic Constitutional: well developed, well nourished and + obese; not ill appearing ENMT: external ear and nose normal, oropharynx normal Respiratory: no respiratory distress Auscultation: lungs clear to auscultation bilaterally Cardiovascular: Rate/Rhythm: regular rate and regular rhythm; not tachycardic Heart Sounds: normal S1 and normal S2; no murmur Extremities: + edema (Trace edema bilaterally) Gastrointestinal (Abdomen): Inspection/Auscultation: normal bowel sounds; abdomen not distended Percussion/Palpation: abdomen soft; abdomen nontender Musculoskeletal: No acute arthritis involving any joint Neurologic: + confused (Pleasantly confused) Lymphatic: no cervical or axillary lymphadenopathy Results & Data Results & Data Vital Signs (Past 12 Hours) Vital Signs Temp Pulse Pulse Resp BP BP Pulse Ox 04/25/23 11:09 36.9 C 64 18 127/73 94 04/25/23 07:22 36.5 C 69 18 147/66 H 94 04/25/23 07:00 72 04/25/23 04:37 36.6 C 70 20 158/82 H 95 04/25/23 01:01 53 L 04/25/23 01:00 36.8 C 60 20 159/82 H 94 O2 Del Method 04/25/23 11:09 Room Air 04/25/23 07:22 Room Air 04/25/23 07:00 04/25/23 04:37 Room Air 04/25/23 01:01 04/25/23 01:00 Room Air Laboratory Results Short CBC 04/25/23 Range/Units 07:39 WBC 4.07 L (4.8-10.8) K/ul Hgb 11.6 L (14.0-18.0) g/dl Hct 33.3 L (42.0-52.0) % Plt Count 203 (130-400) K/uL BMP 04/25/23 07:39 Sodium 140 Potassium 3.8 Chloride 109 H Carbon Dioxide 27 BUN 15 Creatinine 0.87 Glucose 95 Calcium 8.1 L Medications Administered Current Inpatient Medications Acetaminophen (Acetaminophen 325 Mg Tab) 650 mg PO Q4H PRN PRN Reason: Pain or Fever Stop: 05/17/23 12:10 Last Admin: 04/25/23 09:16 Dose: 650 mg Albuterol (Albut/Ipratrop 3mg/0.5mg Neb 3 Ml Vial) 3 ml NEB Q4R PRN; Protocol PRN Reason: Shortness Of Breath Or Wheezing Stop: 05/23/23 02:59 Cefuroxime Axetil (Cefuroxime Axetil 500 Mg Tab) 500 mg PO BID MARIA ESTHER Stop: 05/01/23 08:59 Last Admin: 04/25/23 09:09 Dose: 500 mg Donepezil HCl (Donepezil Hcl 5 Mg Tab) 5 mg PO QAM MARIA ESTHER Stop: 05/17/23 12:10 Last Admin: 04/25/23 09:09 Dose: 5 mg Doxycycline Hyclate (Doxycycline Hyclate 100 Mg Cap) 100 mg PO BID MARIA ESTHER Stop: 04/28/23 20:59 Last Admin: 04/25/23 09:09 Dose: 100 mg Dextrose/Sodium Chloride (D5w And 1/2nss) 1,000 mls @ 125 mls/hr IV .Q8H [facility] Last Infusion: 04/20/23 13:33 Dose: Infused Latanoprost (Latanoprost 0.005% Op Soln 2.5 Ml Btl) 1 drops OPB HS MARIA ESTHER Stop: 05/17/23 20:59 Last Admin: 04/24/23 21:56 Dose: 1 drops Polyethylene Glycol (Polyethylene (Miralax) 17 Gm Pack) 17 gm PO DAILY PRN PRN Reason: Constipation Stop: 05/17/23 12:10
--- NOTE | 2023-04-25 16:41 | Hospitalist Progress Note ---
Date of Service April 25, 2023 [place] note: Assessment & Plan (1) Sepsis: Plan: Admitted with gradual going downhill for a few months and was brought in with increasing weakness and inability to walk around and also behaving odd No evidence of sepsis on presentation but subsequently clinical pictures were sent with fever, delirium and malaise with increasing inflammatory/infection marker Leukopenia now present. Developed fever on second time even with antibiotic and additional antibiotics with started including intravenous acyclovir for possible meningitis Lactate yesterday was negative. Possible viral infection and so far blood cultures and urine examination have been negative Difficult to do complete neurological examination Appreciate ID recommendation for LP which is a scheduled this morning but failed due to unsteady patient and risk of the procedure Added PCR check for anaplasma and babesia-PCR's pending. Discussed with the in detail today and the patient remains afebrile for the last more than 24 hours Will send urine for culture and repeat blood cultures are pending Will get MRI of the head with and without contrast to rule out any acute events in the brain Lumbar puncture fluid assessment remain negative so far-awaiting Lyme DNA and West Nile virus testing Antibiotics have been de-escalated to IV ceftriaxone and oral doxycycline and acyclovir has been discontinued Patient remained stable and has minimal confusion Clinically much better and plan to discharge on Tuesday Has been on oral Ceftin and doxycycline which will be continued for a total of 10 days Remains clinically stable to be discharged night club 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 and family will transport him to [place] tomorrow Increasing delirium with history of dementia is frustrated with the symptoms and which are not being improving She wanted to have the patient transferred to a dementia unit in [facility] Reassured that nothing more can be done for this and she wanted to have a neuro evaluation Appreciate neurology input and recommendation Advised to have LP done and MRI as a scheduled before-as above We will get PT and OT evaluation-recommended rehab Dementia seems to be at his baseline-likely be transferred to rehab tomorrow Back to his baseline (2) Fever: Plan: Unclear etiology-urine clear, CXR and later CT chest without evidence of pneumonia, meningitis considered but LP patient and family declined LP, Lyme reveals a h/o exposure with no active infection. He does have thrombocytopenic but no other LFT abnormalities and no h/o known tick exposure that would suggest rickettsial illness. No other skin findings, no heart murmur, no evidence of GI illness. Blood cultures preliminarily negative. Respiratory biofire panel negative. Echo has been negative for any vegetations Cont empiric cefepime, vanc, ampicillin given headache and fever with neck stiffness and no other source of infection. Cont empiric acyclovir. Awaiting anaplasmosis and Babesia PCR test -initially smears have been negative Chest x-ray showed possible bibasilar consolidation suggestive of pneumonia We will continue current antibiotic and de-escalation of antibiotic will be done following the results of LP No more fever and or chills and white count remains normal further towards lower side Urine culture has been negative No more fever and or chills and no signs and/or symptoms of infection (3) Weakness: Plan: plan as above. Cont supportive care. PT/OT (4) Urinary incontinence: Plan: Some incontinence overnight but no evidence of urinary retention on scheduled bladder scans. Condom catheter in place. No evidence of infection on UA. Urine does appear somewhat concentrated. Will add some IVF overnight. We will send urine culture and sensitivity (5) Thrombocytopenia: Plan: No prior records available to eval [facility]. No evidence of DIC, thrombocytopenia likely related to consumption in sepsis. Hold DVT chemoprophylaxis given PLT 88 today. Trend CBC. Chronic thrombocytopenia platelets 92 today Platelet is 203 today (6) Ambulatory dysfunction: Plan: frequent falls, however, none since January per who is at bedside and assists with the history today. Will also hold midodrine and add back if hypotensive. Check orthostatics qshift. PT/OT (7) Dementia: Plan: chronic with delirium. Cont to reorient as needed. Good day/night cycles. (8) Vertigo: Plan: chronic, stable and no reports of vertigo at this time. Hold daily meclizine as noted above. SCDs/ambulation-chemoprophylaxis contraindicated in setting of thrombocytopenia. Full Code Dispo-cont hospitalization. was at bedside. Has had a long discussion with the regarding possible infection without any source yet or organism yet. Discussed with the in detail Likely discharge in a day or 2 Discussed with the in detail Admission and Anticipated Discharge Date Admission Date: April 18, 2023 Subjective 04/20/2023 The patient was seen and examined in medical telemetry unit in presence of the He has been gradually going downhill for a few months and was brought in with increasing weakness and inability to walk around and also behaving odd No fever and or chills at presentation without any elevation of the white count or tachycardia Noted to have high fever in the hospital and was started with intravenous antibiotics and other medications with continued fever in the hospital Could not do any LP today due to agitation and unsteadiness even with intravenous Ativan 04/21/2023 The patient was seen and examined in medical telemetry unit in presence of the The patient has been doing much better today has been communicating with less confusion and agreed to go for LP and MRI of the head Denies any significant symptoms 04/22/2023 The patient was seen and examined in medical telemetry unit in presence of the He is a status post negative LP so far and negative MRI Seems to be at his baseline though has extreme weakness We will get PT and OT evaluation 04/23/2023 The patient was seen and examined in medical telemetry unit He has been much better today Out of bed on a chair eating breakfast Pleasantly confused but otherwise conversing normally 04/24/2023 The patient was seen and examined in medical telemetry unit in presence of the He has been back to his baseline Minimal headache in the morning may be secondary to recent LP Denies any other symptoms 04/25/2023 The patient was seen and examined in medical telemetry unit in presence of the He has been stable and complains minimal headache without any other symptoms He will be going tomorrow Review of Systems Review of Systems: Unable to gauge review of systems secondary to delirium. Physical Exam Physical Exam: Lying in bed without any acute distress but remains very weak and lethargic Constitutional: well developed, well nourished and + obese; not ill appearing ENMT: external ear and nose normal, oropharynx normal Respiratory: no respiratory distress Auscultation: lungs clear to auscultation bilaterally Cardiovascular: Rate/Rhythm: regular rate and regular rhythm; not tachycardic Heart Sounds: normal S1 and normal S2; no murmur Extremities: + edema (Trace edema bilaterally) Gastrointestinal (Abdomen): Inspection/Auscultation: normal bowel sounds; abdomen not distended Percussion/Palpation: abdomen soft; abdomen nontender Neurologic: + confused (Pleasantly confused) Lymphatic: no cervical or axillary lymphadenopathy Results & Data Results & Data Vital Signs (Past 12 Hours) Vital Signs Temp Pulse Pulse Resp BP Pulse Ox O2 Del Method 04/25/23 15:04 36.5 C 63 17 132/77 100 Room Air 04/25/23 11:09 36.9 C 64 18 127/73 94 Room Air 04/25/23 07:22 36.5 C 69 18 147/66 H 94 Room Air 04/25/23 07:00 72
[2023-04-25] MEDS: LATANOPROST 0.005% OP SOLN 2.5 ML BTL OPB SCH (20:06)
[2023-04-26 06:38] LABS: Cryptococcal Antigen Not Detected (Not Detected); Source CSF
[2023-04-26] MEDS: cefUROXime axetil 500 MG TAB PO SCH (08:50)
[2023-04-26] MEDS: DONEPEZIL HCL 5 MG TAB PO SCH (08:51)
[2023-04-26] MEDS: DOXYCYCLINE HYCLATE 100 MG CAP PO SCH (08:51)
[2023-04-26] MEDS: ACETAMINOPHEN 325 MG TAB PO PRN (09:57)
[2023-04-26] MEDS ORDERED: IBUPROFEN 600 MG TAB PO PRN (10:59)
--- NOTE | 2023-04-26 12:34 | Hospitalist Progress Note ---
Date of Service April 26, 2023 Assessment & Plan (1) Sepsis: Plan: Admitted with gradual going downhill for a few months and was brought in with increasing weakness and inability to walk around and also behaving odd No evidence of sepsis on presentation but subsequently clinical pictures were sent with fever, delirium and malaise with increasing inflammatory/infection marker Leukopenia now present. Developed fever on second time even with antibiotic and additional antibiotics with started including intravenous acyclovir for possible meningitis Lactate yesterday was negative. Possible viral infection and so far blood cultures and urine examination have been negative Difficult to do complete neurological examination Appreciate ID recommendation for LP which is a scheduled this morning but failed due to unsteady patient and risk of the procedure Added PCR check for anaplasma and babesia-PCR's pending. Discussed with the in detail today and the patient remains afebrile for the last more than 24 hours Will send urine for culture and repeat blood cultures are pending Will get MRI of the head with and without contrast to rule out any acute events in the brain Lumbar puncture fluid assessment remain negative so far-awaiting Lyme DNA and We st Nile virus testing Antibiotics have been de-escalated to IV ceftriaxone and oral doxycycline and acyclovir has been discontinued Patient remained stable and has minimal confusion Clinically much better and plan to discharge on Tuesday Has been on oral Ceftin and doxycycline which will be continued for a total of 10 days Remains clinically stable to be discharged safety 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 and family will transport him to [place] tomorrow Remains medically stable to be discharged this afternoon if he has a bed to go facility Increasing delirium with history of dementia is frustrated with the symptoms and which are not being improving She wanted to have the patient transferred to a dementia unit in [facility] Reassured that nothing more can be done for this and she wanted to have a neuro evaluation Appreciate neurology input and recommendation Advised to have LP done and MRI as a scheduled before-as above We will get PT and OT evaluation-recommended rehab Dementia seems to be at his baseline-likely be transferred to rehab tomorrow Back to his baseline-no acute delirium (2) Fever: Plan: Unclear etiology-urine clear, CXR and later CT chest without evidence of pneumonia, meningitis considered but LP patient and family declined LP, Lyme reveals a h/o exposure with no active infection. He does have thrombocytopenic but no other LFT abnormalities and no h/o known tick exposure that would suggest rickettsial illness. No other skin findings, no heart murmur, no evidence of GI illness. Blood cultures preliminarily negative. Respiratory biofire panel negative. Echo has been negative for any vegetations Cont empiric cefepime, vanc, ampicillin given headache and fever with neck stiffness and no other source of infection. Cont empiric acyclovir. Awaiting anaplasmosis and Babesia PCR test -initially smears have been negative Chest x-ray showed possible bibasilar consolidation suggestive of pneumonia We will continue current antibiotic and de-escalation of antibiotic will be done following the results of LP No more fever and or chills and white count remains normal further towards lower side Urine culture has been negative No more fever and or chills and no signs and/or symptoms of infection No fever and or chills Headache History of chronic headache controlled with Tylenol Complicated by LP We will try ibuprofen (3) Weakness: Plan: plan as above. Cont supportive care. PT/OT PT OT recommended rehab (4) Urinary incontinence: Plan: Some incontinence overnight but no evidence of urinary retention on scheduled bladder scans. Condom catheter in place. No evidence of infection on UA. Urine does appear somewhat concentrated. Will add some IVF overnight. We will send urine culture and sensitivity Advised to have follow-up with urologist as an outpatient if the problem continues (5) Thrombocytopenia: Plan: No prior records available to eval [facility]. No evidence of DIC, thrombocy topenia likely related to consumption in sepsis. Hold DVT chemoprophylaxis given PLT 88 today. Trend CBC. Chronic thrombocytopenia platelets 92 today Platelet is 203 today Thrombocytopenia is corrected (6) Ambulatory dysfunction: Plan: frequent falls, however, none since January per who is at bedside and assists with the history today. Will also hold midodrine and add back if hypotensive. Check orthostatics qshift. PT/OT (7) Dementia: Plan: chronic with delirium. Cont to reorient as needed. Good day/night cycles. (8) Vertigo: Plan: chronic, stable and no reports of vertigo at this time. Hold daily meclizine as noted above. SCDs/ambulation-chemoprophylaxis contraindicated in setting of thrombocytopenia. Full Code Dispo-cont hospitalization. was at bedside. Has had a long discussion with the regarding possible infection without any source yet or organism yet. Discussed with the in detail Likely discharge in a day or 2 Discussed with the in detail Admission and Anticipated Discharge Date Admission Date: April 18, 2023 Subjective 04/20/2023 The patient was seen and examined in medical telemetry unit in presence of the He has been gradually going downhill for a few months and was brought in with increasing weakness and inability to walk around and also behaving odd No fever and or chills at presentation without any elevation of the white count or tachycardia Noted to have high fever in the hospital and was started with intravenous antibiotics and other medications with continued fever in the hospital Could not do any LP today due to agitation and unsteadiness even with intravenous Ativan 04/21/2023 The patient was seen and examined in medical telemetry unit in presence of the The patient has been doing much better today has been communicating with less confusion and agreed to go for LP and MRI of the head Denies any significant symptoms 04/22/2023 The patient was seen and examined in medical telemetry unit in presence of the He is a status post negative LP so far and negative MRI Seems to be at his baseline though has extreme weakness We will get PT and OT evaluation 04/23/2023 The patient was seen and examined in medical telemetry unit He has been much better today Out of bed on a chair eating breakfast Pleasantly confused but otherwise conversing normally 04/24/2023 The patient was seen and examined in medical telemetry unit in presence of the He has been back to his baseline Minimal headache in the morning may be secondary to recent LP Denies any other symptoms 04/25/2023 The patient was seen and examined in medical telemetry unit in presence of the He has been stable and complains minimal headache without any other symptoms He will be going tomorrow 04/26/2023 The patient was seen and examined in medical telemetry unit in presence of the He complains to headache without any associated nausea, vomiting, photophobia or neck stiffness He denies any other symptoms and remains pleasantly confused as before from dementia Review of Systems Review of Systems: Unable to gauge review of systems secondary to delirium. Physical Exam Physical Exam: Lying in bed without any acute distress but remains very weak and lethargic Constitutional: well developed, well nourished and + obese; not ill appearing ENMT: external ear and nose normal, oropharynx normal Respiratory: no respiratory distress Auscultation: lungs clear to auscultation bilaterally Cardiovascular: Rate/Rhythm: regular rate and regular rhythm; not tachycardic Heart Sounds: normal S1 and normal S2; no murmur Extremities: + edema (Trace edema bilaterally) Gastrointestinal (Abdomen): Inspection/Auscultation: normal bowel sounds; abdomen not distended Percussion/Palpation: abdomen soft; abdomen nontender Neurologic: + confused (Pleasantly confused) Lymphatic: no cervical or axillary lymphadenopathy Results & Data Results & Data Vital Signs (Past 12 Hours) Vital Signs Temp Pulse Pulse Resp BP BP Pulse Ox 04/26/23 07:51 37.0 C 64 16 125/68 94 04/26/23 07:43 55 L 04/26/23 03:40 36.8 C 64 18 154/84 H 96 04/26/23 00:34 36.7 C 70 18 154/76 H 95 O2 Del Method 04/26/23 07:51 Room Air 04/26/23 07:43 04/26/23 03:40 Room Air 04/26/23 00:34 Room Air Medications Administered Current Inpatient Medications Acetaminophen (Acetaminophen 325 Mg Tab) 650 mg PO Q4H PRN PRN Reason: Pain or Fever Stop: 05/17/23 12:10 Last Admin: 04/26/23 09:57 Dose: 650 mg Albuterol (Albut/Ipratrop 3mg/0.5mg Neb 3 Ml Vial) 3 ml NEB Q4R PRN; Protocol PRN Reason: Shortness Of Breath Or Wheezing Stop: 05/23/23 02:59 Cefuroxime Axetil (Cefuroxime Axetil 500 Mg Tab) 500 mg PO BID [facility] Stop: 05/01/23 08:59 Last Admin: 04/26/23 08:50 Dose: 500 mg Donepezil HCl (Donepezil Hcl 5 Mg Tab) 5 mg PO QAM [facility] Stop: 05/17/23 12:10 Last Admin: 04/26/23 08:51 Dose: 5 mg Doxycycline Hyclate (Doxycycline Hyclate 100 Mg Cap) 100 mg PO BID [facility] Stop: 04/28/23 20:59 Last Admin: 04/26/23 08:51 Dose: 100 mg Dextrose/Sodium Chloride (D5w And 1/2nss) 1,000 mls @ 125 mls/hr IV .Q8H [facility] Last Infusion: 04/20/23 13:33 Dose: Infused Ibuprofen (Ibuprofen 600 Mg Tab) 600 mg PO Q8H PRN PRN Reason: Headache or Pain Stop: 05/26/23 10:59 Latanoprost (Latanoprost 0.005% Op Soln 2.5 Ml Btl) 1 drops OPB HS MARIA ESTHER Stop: 05/17/23 20:59 Last Admin: 04/25/23 20:06 Dose: 1 drops Polyethylene Glycol (Polyethylene (Miralax) 17 Gm Pack) 17 gm PO DAILY PRN PRN Reason: Constipation Stop: 05/17/23 12:10
[2023-04-26] MEDS ORDERED: DOXYCYCLINE HYCLATE 100 MG CAP PO SCH (15:45)
[2023-04-26] MEDS ORDERED: cefUROXime axetil 500 MG TAB PO SCH (15:45)
[2023-04-27 00:22] LABS: Lyme DNA PCR CSF or Synovial Not Detected (Not Detected); Lyme DNA Source CSF
--- NOTE | 2023-04-27 07:49 | Discharge Summary ---
Date of Service April Admission HPI Per Admitting Provider 83 yo M with dementia traveled here this weekend from [place] to visit a friend reports helped friend moving heavy refrigerator reports losing control of urine when changes position, chronically has retention issues, takes saw palmetto supplement which "isn't working" became weaker in the last 24-48 hours with fever since yesterday ate well yesterday in middle of night, he had to go to the bathroom and per he was very confused thought there was a faucet on the wall where he could get a drink of water he was too weak and couldn't get dressed, couldn't stand up or take directions. dry coughing reported about 3-4 days ago "dull thumper of a headache" Neck stiffness and back pain related to moving friends' refrigerator. weakness and more frequent falls at home in recent months per but no fall since January midodrine was started a couple of months ago and he has been taking twice daily persistent dizziness so takes meclizine every day since January Also takes donepezil ambulates independently and he is mentating at his baseline. mosquito bites recently per some back stiffness related to moving the appliance. Denies chest pain, SOB, abdominal pain. On arrival to the ER he was confused and lethargic with HR 97. Temp didn't register as febrile, but he appeared hot and ill with generalized weakness. Given NSS and cefepime and perked up with IVf per ER provider. Meningitis considered, however, patient and feel this is less likely and decline LP at this time. Lyme panel-no acute disease Anaplasma and babesia pending. No lab abnormalities, rashes or known h/o tick that would suggest tick borne illness in the history. CXR without formal reading but doesn't appear to have a chyna pneumonia Blood cultures are pending. Admission Exam Per Admitting Provider Physical Exam: CONSTITUTIONAL: WNWD, vitals as above, generally ill-appearing, NAD EYES: normal conjunctivae, no scleral icterus ENT: external ear and nose normal NECK: trachea midline RESPIRATORY: clear to auscultation bilaterally, no crackles, rales or wheezes, normal respiratory effort CARDIOVASCULAR: regular rate and rhythm, S1 and 2 heard without murmurs, gallops or rubs, no JVD, no peripheral edema CHEST: inspection of chest was normal GASTROINTESTINAL: soft, nontender, ND, no guarding MUSCULOSKELETAL: strength 5/5 throughout, head is normocephalic and atraumatic SKIN: warmer than normal and dry, no rashes NEUROLOGIC: patellar DTRs 2+ bilat. pupils are round and equal bilaterally, no facial palsy, no dysarthria. CN 2-12 grossly intact, no sensory deficit, normal cognition, normal speech, no tremor PSYCHIATRIC: alert cooperative and oriented to person, place but not to time which is his baseline. Euthymic mood, answering questions correctly, no clinical signs of delirium. Principal Diagnosis Sepsis likely secondary to pneumonia, delirium with dementia, ambulatory dysfunction, thrombocytopenia Discharge Exam Lying in bed without any acute distress but remains very weak and lethargic Constitutional well developed, well nourished and + obese; not ill appearing ENMT external ear and nose normal, oropharynx normal Respiratory no respiratory distress Auscultation: lungs clear to auscultation bilaterally Cardiovascular Rate/Rhythm: regular rate and regular rhythm; not tachycardic Heart Sounds: normal S1 and normal S2; no murmur Extremities: + edema (Trace edema bilaterally) Gastrointestinal (Abdomen) Inspection/Auscultation: normal bowel sounds; abdomen not distended Percussion/Palpation: abdomen soft; abdomen nontender Neurologic + confused (Pleasantly confused) Lymphatic no cervical or axillary lymphadenopathy Discharge Data Allergies Allergy/AdvReac Type Severity Reaction Status Date / Time No Known Allergies Allergy Unverified 04/17/23 08:31 Consultations 04/17/23 08:23 ED Decision to Admit Stat 04/18/23 09:38 Consult Infectious Diseases Routine 04/21/23 10:01 Consult Neurology Routine Ordered Studies 04/17/23 09:05 CT cervical spine wo con Stat CT head/brain wo con Stat 04/17/23 16:23 CT abd pelvis IV con only Routine CT chest diagnostic wo con Routine 04/19/23 20:02 US guide vascular access Urgent 04/21/23 11:38 IR lumbar puncture diagnostic Routine 04/21/23 12:25 MR brain wo/w con Routine Hospital Course (1) Sepsis: Admitted with gradual going downhill for a few months and was brought in with increasing weakness and inability to walk around and also behaving odd No evidence of sepsis on presentation but subsequently clinical pictures were sent with fever, delirium and malaise with increasing inflammatory/infection marker Leukopenia now present. Developed fever on second time even with antibiotic and additional antibiotics with started including intravenous acyclovir for possible meningitis Lactate yesterday was negative. Possible viral infection and so far blood cultures and urine examination have been negative Difficult to do complete neurological examination Appreciate ID recommendation for LP which is a scheduled this morning but failed due to unsteady patient and risk of the procedure Added PCR check for anaplasma and babesia-PCR's pending. Discussed with the in detail today and the patient remains afebrile for the last more than 24 hours Will send urine for culture and repeat blood cultures are pending Will get MRI of the head with and without contrast to rule out any acute events in the brain Lumbar puncture fluid assessment remain negative so far-awaiting Lyme DNA and West Nile virus testing Antibiotics have been de-escalated to IV ceftriaxone and oral doxycycline and acyclovir has been discontinued Patient remained stable and has minimal confusion Clinically much better and plan to discharge on Tuesday Has been on oral Ceftin and doxycycline which will be continued for a total of 10 days Remains clinically stable to be discharged content 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 and family will transport him to [place] tomorrow Remains medically stable to be discharged this afternoon if he has a bed to go facility Increasing delirium with history of dementia is frustrated with the symptoms and which are not being improving She wanted to have the patient transferred to a dementia unit in [facility] Reassured that nothing more can be done for this and she wanted to have a neuro evaluation Appreciate neurology input and recommendation Advised to have LP done and MRI as a scheduled before-as above We will get PT and OT evaluation-recommended rehab Dementia seems to be at his baseline-likely be transferred to rehab tomorrow Back to his baseline-no acute delirium (2) Fever: Unclear etiology-urine clear, CXR and later CT chest without evidence of pneumonia, meningitis considered but LP patient and family declined LP, Lyme reveals a h/o exposure with no active infection. He does have thrombocytopenic but no other LFT abnormalities and no h/o known tick exposure that would suggest rickettsial illness. No other skin findings, no heart murmur, no evidence of GI illness. Blood cultures preliminarily negative. Respiratory biofire panel negative. Echo has been negative for any vegetations Cont empiric cefepime, vanc, ampicillin given headache and fever with neck stiffness and no other source of infection. Cont empiric acyclovir. Awaiting anaplasmosis and Babesia PCR test -initially smears have been negative Chest x-ray showed possible bibasilar consolidation suggestive of pneumonia We will continue current antibiotic and de-escalation of antibiotic will be done following the results of LP No more fever and or chills and white count remains normal further towards lower side Urine culture has been negative No more fever and or chills and no signs and/or symptoms of infection No fever and or chills Headache History of chronic headache controlled with Tylenol Complicated by LP We will try ibuprofen (3) Weakness: plan as above. Cont supportive care. PT/OT PT OT recommended rehab (4) Urinary incontinence: Some incontinence overnight but no evidence of urinary retention on scheduled bladder scans. Condom catheter in place. No evidence of infection on UA. Urine does appear somewhat concentrated. Will add some IVF overnight. We will send urine culture and sensitivity Advised to have follow-up with urologist as an outpatient if the problem continues (5) Thrombocytopenia: No prior records available to [facility]. No evidence of DIC, thrombocytopenia likely related to consumption in sepsis. Hold DVT chemoprophylaxis given PLT 88 today. Trend CBC. Chronic thrombocytopenia platelets 92 today Platelet is 203 today Thrombocytopenia is corrected (6) Ambulatory dysfunction: frequent falls, however, none since January per who is at bedside and assists with the history today. Will also hold midodrine and add back if hypotensive. Check orthostatics qshift. PT/OT (7) Dementia: chronic with delirium. Cont to reorient as needed. Good day/night cycles. (8) Vertigo: chronic, stable and no reports of vertigo at this time. Hold daily meclizine as noted above. SCDs/ambulation-chemoprophylaxis contraindicated in setting of thrombocytopenia. Full Code Dispo-cont hospitalization. was at bedside. Has had a long discussion with the regarding possible infection without any source yet or organism yet. Discussed with the in detail Likely discharge in a day or 2 Discussed with the in detail Total Time Total Time Spent Total Time Spent (In Minutes): 35 minutes Discharge Plan Discharge Items Patient Disposition: Home - Home Health Services Reason For Visit: SEPSIS, CONFUSION, WEAKNESS Discharge Diagnosis: Sepsis likely secondary to pneumonia, delirium with dementia, ambulatory dysfunction, thrombocytopenia Condition on Discharge: Fair Activity: As commented below Activity Comment: Continue home PT Non-emergency contact: Primary Care Provider Call non-emergency contact if: you have any medication questions and your symptoms worsen Follow-up/Referrals: Norma Ruvalcaba MD [Primary Care Provider] - (Please make an appointment with your PCP within 7 days) Diet: Regular Addtl Attending Provider Instructions: Please take precautions to avoid falls Please finish the course of antibiotic You can try [id number] probiotics Take your medications as advised Keep appointments with your healthcare providers Pending Studies at Discharge: No Stand-Alone Forms: My [facility] [employer], Smoking Cessation Medications and DC Order Prescriptions: New doxycycline hyclate 100 mg Capsule 100 mg PO BID Qty: 10 0RF cefuroxime axetil 500 mg Tablet 500 mg PO BID Qty: 10 0RF Continued latanoprost 0.005 % drops 1 drp OPB HS donepezil 5 mg tablet 5 mg PO QAM midodrine 5 mg tablet 5 mg PO BID@0700,1300 meclizine 12.5 mg tablet 12.5 mg PO DAILY Zn-pyg [id number]-pob palmet Capsule 1 cap PO DAILY Discharge Orders: Discharge Order (Routine); Ordered 04/26/23 Ordered By: Allen Duke Admission Data Admit Date/Time: 04/18/23 07:37 Attending Provider: Allen Duke Admit Provider: Kia Barlow Primary Care Provider: Norma Ruvalcaba Other Providers: Kia Barlow ; Gonzalo Casiano ; Ibrahima Duncan ; Jesus Quiros I. ; Dwight Christine II ; Keyla Coelho ; Oleg Giordano ; Jaime Meyer ; Oseas Bermeo ; Dennis Norris ; Joesph Mckeon ; Thea Linda ; Tita Cooney ; Joanna Saldana ; Chinmay Rodriguez ; Joanna Becker ; Alfredo Luz ; Aj Tyler ; Charlie Rae ; Livan Flores ; Nayla Palomares ; Gaby Melgar ; Jose Martin Mendoza ; Randall Francisco ; Alexia Collier ; Tomy Watson ; Aleena Archer Other Interventions: Discharge Summary Assessment (RN) Last Done: 04/26/23 15:06
== END 2023-04-26 16:26 | disposition home health service (06) | DRG 872 ==
LOC: ED 06:21 → 2N 06:21 → SUATTDRO 04-18 07:37 → 2N 04-24 01:47